=== PATIENT | female | born 1990 | race Caucasian/White ===

== ENCOUNTER 2016-10-27 23:56 | Emergency (ER) | payer BC ==
[~2016-10-27] VITALS: Ht 157.5 cm; Wt 56.0 kg
[2016-10-28 00:05] VITALS: Ht 157.5 cm; Wt 56.0 kg
[2016-10-28] MEDS ORDERED: MELA1TAB5 PO (00:35)
--- NOTE | 2016-10-28 00:36 | EMERGENCY ROOM VISIT NOTE ---
History Report prepared by Zhanna: Matilde Hughes Under the Supervision of: Dr. Sae Dos Santos D.O. First contact with patient: 00:08 Chief Complaint: RECTAL BLEEDING Stated Complaint: GI ISSUE History of Present Illness The patient is a 26 year old female who presents to the Emergency Room with complaints of rectal bleeding beginning 30 minutes prior to arrival. The patient states that she has had this external hemorrhoid since the age of 14. She also complains of weakness and nausea. The patient's LNMP was October 01. Bleeding started following having a bowel movement. She notes that this was very painful. The patient has a history of an appendectomy. Pt denies headache, change in vision, fevers, chest pain, shortness of breath, vomiting, diarrhea, pain with urination, and melena. Source of History: patient Onset: 30 minutes prior to arrival Position: other (rectum) Quality: other (bleeding) Associated Symptoms: + nausea, + weakness, No chest pain, No SOB, No vomiting, No melena, No diarrhea Review of Systems See HPI for pertinent positives & negatives. A total of 10 systems reviewed and were otherwise negative. Past Medical & Surgical Medical Problems: (1) Urinary problem Family History Diabetes mellitus FH: cancer FH: gallbladder disease FH: heart disease Hypertension Kidney disease Social History Smoking Status: Never Smoker Marital Status: single Current/Historical Medications Scheduled Hydrocortisone 2.5% (Rectal) (Anusol-Hc 2.5%), 1 APPLN TOP BID Scheduled PRN Melatonin (Kp Melatonin), 1-2 MG PO HS PRN for Sleep Allergies Coded Allergies: No Known Allergies (Unverified , 10/28/16) Physical Exam Vital Signs Date Time Temp Pulse Resp B/P (MAP) Pulse Ox O2 Delivery O2 Flow Rate FiO2 10/28/16 01:58 36.7 70 18 90/65 100 10/28/16 00:05 36.7 108 18 124/74 100 Room Air Physical Exam GENERAL: sitting up in bed, alert, well appearing, well nourished, no distress, non-toxic EYE EXAM: normal conjunctiva OROPHARYNX: no exudate, no erythema, lips, buccal mucosa, and tongue normal and mucous membranes are moist NECK: supple, no nuchal rigidity, no adenopathy, non-tender LUNGS: Clear to auscultation. Normal chest wall mechanics HEART: no murmurs, S1 normal and S2 normal ABDOMEN: abdomen soft, non-tender, normo-active bowel sounds, no masses, no rebound or guarding. BACK: Back is symmetrical on inspection and there is no deformity, no midline tenderness, no CVA tenderness. SKIN: no rashes and no bruising UPPER EXTREMITIES: upper extremities are grossly normal. LOWER EXTREMITIES: No pitting edema. NEURO EXAM: Normal sensorium, cranial nerves II-XII intact, normal speech, no weakness of arms, no weakness of legs. RECTAL: Heme negative. External hemorrhoid at 3 o'clock with a tear. No obvious bleeding. Medical Decision & Procedures Laboratory Results 10/28/16 00:35 Red Blood Count 3.96, Mean Corpuscular Volume 88.9, Mean Corpuscular Hemoglobin 30.3, Mean Corpuscular Hemoglobin Concent 34.1, Mean Platelet Volume 10.0, Neutrophils (%) (Auto) 65.5, Lymphocytes (%) (Auto) 30.1, Monocytes (%) (Auto) 3.9, Eosinophils (%) (Auto) 0.2, Basophils (%) (Auto) 0.2, Neutrophils # (Auto) 6.23, Lymphocytes # (Auto) 2.87, Monocytes # (Auto) 0.37, Eosinophils # (Auto) 0.02, Basophils # (Auto) 0.02 10/28/16 00:35 Test 10/28/16 00:35 10/28/16 00:45 White Blood Count 9.52 K/uL (4.8-10.8) Red Blood Count 3.96 M/uL (4.2-5.4) Hemoglobin 12.0 g/dL (12.0-16.0) Hematocrit 35.2 % (37-47) Mean Corpuscular Volume 88.9 fL (80-100) Mean Corpuscular Hemoglobin 30.3 pg (25-34) Mean Corpuscular Hemoglobin Concent 34.1 g/dl (32-36) Platelet Count 269 K/uL (130-400) Mean Platelet Volume 10.0 fL (7.4-10.4) Neutrophils (%) (Auto) 65.5 % Lymphocytes (%) (Auto) 30.1 % Monocytes (%) (Auto) 3.9 % Eosinophils (%) (Auto) 0.2 % Basophils (%) (Auto) 0.2 % Neutrophils # (Auto) 6.23 K/uL (1.4-6.5) Lymphocytes # (Auto) 2.87 K/uL (1.2-3.4) Monocytes # (Auto) 0.37 K/uL (0.11-0.59) Eosinophils # (Auto) 0.02 K/uL (0-0.5) Basophils # (Auto) 0.02 K/uL (0-0.2) RDW Standard Deviation 40.0 fL (36.4-46.3) RDW Coefficient of Variation 12.3 % (11.5-14.5) Immature Granulocyte % (Auto) 0.1 % Immature Granulocyte # (Auto) 0.01 K/uL (0.00-0.02) Anion Gap 7.0 mmol/L (3-11) Est Creatinine Clear Calc Drug Dose 84.3 ml/min Estimated GFR () 117.9 Estimated GFR (Non- 101.8 BUN/Creatinine Ratio 9.6 (10-20) Calcium Level 9.1 mg/dl (8.5-10.1) Total Bilirubin 0.2 mg/dl (0.2-1) Direct Bilirubin < 0.1 mg/dl (0-0.2) Aspartate Amino Transf (AST/SGOT) 12 U/L (15-37) Alanine Aminotransferase (ALT/SGPT) 17 U/L (12-78) Alkaline Phosphatase 49 U/L (45-117) Total Protein 6.8 gm/dl (6.4-8.2) Albumin 3.9 gm/dl (3.4-5.0) Lipase 134 U/L (73-393) Urine Color YELLOW Urine Appearance CLEAR (CLEAR) Urine pH 7.5 (4.5-7.5) Urine Specific [place] 1.013 (1.000-1.030) Urine Protein NEG (NEG) Urine Glucose (UA) NEG (NEG) Urine Ketones NEG (NEG) Urine Occult Blood NEG (NEG) Urine Nitrite NEG (NEG) Urine Bilirubin NEG (NEG) Urine Urobilinogen NEG (NEG) Urine Leukocyte Esterase NEG (NEG) Urine WBC (Auto) 1-5 /hpf (0-5) Urine RBC (Auto) 0-4 /hpf (0-4) Urine Hyaline Casts (Auto) 0 /lpf (0-5) Urine Epithelial Cells (Auto) >30 /lpf (0-5) Urine Bacteria (Auto) NEG (NEG) Urine Test NEG (NEG) Laboratory results per my review. ED Course ED COURSE: Vital signs were reviewed and showed tachycardia. The patients medical record was reviewed The above diagnostic studies were performed and reviewed. ED treatments and interventions as stated above. 0010: The patient was evaluated in room A4. A complete history and physical examination was performed. 0051: I checked on the patient and she is doing well. 0120: Upon reevaluation, the patient is feeling better. I discussed the findings and the treatment plan with the patient. She verbalizes agreement and understanding. She was discharged home. Medical Decision Differential diagnoses includes but is not limited to gastritis, peptic ulcer disease, GERD, gallbladder disease, pancreatitis, small bowel obstruction, acute coronary syndrome, pericarditis, ischemic bowel, irritable bowel disease, irritable bowel syndrome, appendicitis, diverticulitis, malignancy, hernia, urinary tract infection, torsion, [/ectopic (if female)], perforation, trauma, infectious. Patient is a 26 her old female who presents the ER for rectal bleeding. She notes she has had a hemorrhoid since she was 14 and she had a bowel movement today and has been having bright red blood and pain since then. She notes it is an external hemorrhoid. Patient has no other complaints with the exception of mild nausea. She does feel lightheaded. Abdominal exam is benign. Rectal exam confirms a small external hemorrhoid with a slight tear in it. No active bleeding currently. Patient does have pain on palpation. Rectal is heme- negative. Labs were remarkable for a CBC, BMP, LFTs, bilirubin and lipase. UA is negative. negative. Patient was updated regards to findings and discharged follow-up PCP. Discussed with Pt concerning signs and symptoms to watch out for. Pt was instructed to follow up with their PCP and discussed with the patient their option to return to the ED at anytime for persistent or worsening symptoms. The appropriate anticipatory guidance and out-patient management, including indications for return to the emergency department, were explained at length to the patient and understood. Blood pressure screening: Patient was found to have normal blood pressure on screening and does not require follow-up. Medication Reconciliation: I attest that I have personally reviewed the patient' s current medication list. Impression Primary Impression: External hemorrhoid Scribe Attestation The scribe's documentation has been prepared under my direction and personally reviewed by me in its entirety. I confirm that the note above accurately reflects all work, treatment, procedures, and medical decision making performed by me. Departure Information Dispostion Home / Self-Care Prescriptions Hydrocortisone 2.5% (Rectal) (ANUSOL-HC 2.5%) 2.5 % Cre 1 APPLN TOP BID for 7 Days, #30 GM 1 Refill Prov: Sae Dos Santos, DO 10/28/16 Referrals No Doctor, Assigned (PCP) Forms HOME CARE DOCUMENTATION FORM, IMPORTANT VISIT INFORMATION, WORK / SCHOOL INSTRUCTIONS Patient Instructions Hemorrhoids, My [facility] [employer] Additional Instructions Please follow up with your primary care doctor with in the next 24 hours. Any worsening of your symptoms, please return to the ED immediately. This includes recurrent bleeding, worsening pain, passing out, chest pain, shortness of breath , or any other concerning signs or symptoms from your standpoint. Please follow up with general surgery or GI for your external hemorrhoid. Please use stool softeners as needed to prevent from straining and worsening your hemorrhoid. These include Colace which you can take [id number] 100 mg twice a day and Senokot's which is also [id number].
[2016-10-28 00:55] LABS: BASO % 0.2 %; BASO ABS # 0.02 K/uL (0-0.2); COMPLETE YES; EOS % 0.2 %; HEMATOCRIT 35.2 % (37-47); IG% 0.1 %; LYMPH % 30.1 %; LYMPH ABS # 2.87 K/uL (1.2-3.4); MEAN CELL VOLUME 88.9 fL (80-100); MEAN CORPUSCULAR HEMOGLOBIN 30.3 pg (25-34); MEAN CORPUSCULAR HGB CONC 34.1 g/dl (32-36); MONO % 3.9 %; NEUT % 65.5 %; PLATELET COUNT 269 K/uL (130-400); RED BLOOD COUNT 3.96 M/uL (4.2-5.4); WHITE BLOOD COUNT 9.52 K/uL (4.8-10.8)
[2016-10-28 01:00] LABS: URINE APPEARANCE CLEAR (CLEAR); URINE BILIRUBIN NEG (NEG); URINE COLOR YELLOW; URINE EPITHELIAL CELL AUTO >30 /lpf (0-5); URINE NITRITE NEG (NEG); URINE PH 7.5 (4.5-7.5); URINE SPECIFIC GRAVITY 1.013 (1.000-1.030); UROBILINOGEN NEG (NEG); ZZUR CULT IF INDIC CLEAN CATCH NO
[2016-10-28 01:10] LABS: MANUAL MICROSCOPIC REQUIRED? NO; REVIEW REQ? NO
[2016-10-28 01:17] LABS: ALT/SGPT 17 U/L (12-78); AST/SGOT 12 U/L (15-37); BLOOD UREA NITROGEN 8 mg/dl (7-18); BUN/CREATININE RATIO 9.6 (10-20); CALCIUM 9.1 mg/dl (8.5-10.1); CARBON DIOXIDE 26 mmol/L (21-32); CHLORIDE 108 mmol/L (98-107); GLUCOSE 99 mg/dl (70-99); SODIUM 141 mmol/L (136-145)
[2016-10-28 01:19] LABS: ALKALINE PHOSPHATASE 49 U/L (45-117)
[2016-10-28] MEDS ORDERED: HYDR2.5C37 TOP (01:46)
[2016-10-28 01:58] VITALS: BP 90/65; PULSE 70; TEMP 36.7; O2SAT 100
== END 2016-10-28 01:59 | disposition home or self-care (01) ==
LOC: C.EDB 23:57 → C.EDA 10-28 01:59
DX: K64.4 Residual hemorrhoidal skin tags (principal); K62.5 Hemorrhage of anus and rectum; R11.0 Nausea; R53.1 Weakness; Z82.49 Family history of ischemic heart disease and other diseases of the circulatory system; Z83.3 Family history of diabetes mellitus; Z83.79 Family history of other diseases of the digestive system; Z84.1 Family history of disorders of kidney and ureter

== ENCOUNTER 2022-06-07 20:29 | Observation (INO) ==
[2022-06-07] MEDS ORDERED: SODIUM CHLORIDE 0.9% 1000ML 1,000 ML IV STA (21:13)
[2022-06-07] MEDS ORDERED: KETOROLAC 30 MG/ML VIAL IV ONE (21:13)
--- NOTE | 2022-06-07 21:15 | Emergency Department Note ---
Impression & Plan Sepsis, Fever, Leukocytosis ED Provider Note HISTORY OF PRESENT ILLNESS: Patient is a 32-year-old female presenting with fever and body aches. Patient reports she has been having a temperature of over 101 for the last 24 hours and generalized body aches. She reports that she has been alternating Tylenol and Motrin without any improvement in symptoms. Her 2 daughters are sick with similar symptoms. She reports a nonproductive cough. Denies any chest pain or significant shortness of breath. Denies any abdominal pain, nausea or vomiting. Denies any dysuria or hematuria. Denies any known tick bites or rashes. ROS: as above PHYSICAL EXAM: Constitutional: Patient appears in no acute distress. Ill appearing HENT: Head: Normocephalic and atraumatic. Eyes: EOMI, PERRL Mouth/Throat: Mucous membranes moist. Neck: Trachea midline. Neck supple. Cardiovascular: Tachycardic with regular rhythm. No murmurs, rubs or gallops. Intact distal pulses. Pulmonary/Chest: No respiratory distress. Breath sounds clear and equal bilaterally. No wheezes or rales. Abdominal: BS +. Abdomen soft, no tenderness, rebound or guarding. Back: No midline spinal tenderness, no paraspinal tenderness, no CVA tenderness. Musculoskeletal: No edema, tenderness or deformity noted. Skin: Warm and dry. No rash, erythema, pallor or cyanosis Psychiatric: Appropriate mood and affect for situation. Neurological: Alert and keenly responsive. CN II-XII grossly intact, moving al l extremities equally and fully. MDM: - Vitals signs showed fever and tachycardia. - History obtained via patient. Patient presents with fever and body aches. Patient reports she has had symptoms for the last 24 hours. Has been taking Tylenol and Motrin without any improvement in symptoms. Reports a nonproductive cough. Denies any chest pain or significant shortness of breath. Her children were sick with a fever and a nonproductive cough over the last week. Denies any dysuria or hematuria. Denies any rashes. Reports generalized body aches. - Chronic conditions affecting care: none - Differential diagnoses include, but are not limited to: Viral syndrome; UTI; pneumonia - Order placed for continuous cardiac monitoring. At this time, monitor showed rate of 112 bpm with normal sinus rhythm, per my interpretation. - External medical records reviewed. - EKG reviewed by myself showed normal sinus rhythm. Tachycardic with HR 119. Normal intervals. QTc 416. - Laboratory workup interpreted by myself showed leukocytosis (WBC 18.35) with neutrophilic shift; hypokalemia (K 3.2); normal creatinine; normal troponin; normal procalcitonin; normal CK - Viral panel normal - CXR negative for acute cardiopulmonary pathology, per my interpretation. - UA ordered. - Blood cultures obtained. IV rocephin given. - Patient given 2L NS, 30 mg IV toradol. - Discussion was had with bilingual social worker about patient's case and need for admission. - Hospitalist, Dr. Wilkerson, consulted for admission. - [facility] ASSESSMENT AND PLAN: Diagnosis: sepsis; fever; tachycardia; leukocytosis Plan: admit Past Med/Surg History Medical History External hemorrhoid Urinary problem Surgical History History of appendectomy (~05/02/08) [place] teeth extracted (~12/08/07) Social History Smoking Status: Never smoker Second Hand Exposure: No; Hx Alcohol Use: No Hx Substance Use: No Preferred Language: [place]an Communication Ability: Effective Leather Dresser Required: No Beliefs That Will Affect Care: None marital status: Current Living Situation: Spouse current occupational status: employed Feels Safe at Home: Yes Assistive Devices: None Allergies Allergies Allergy/AdvReac Type Severity Reaction Status Date / Time No Known Allergies Allergy Verified 06/07/22 21:39 Home Meds Home Medications Medication Instructions Recorded Confirmed venlafaxine 75 mg capsule,extended 75 mg PO DAILY 06/07/22 06/07/22 release 24 hr Results & Data (ED) Vital Signs Vital Signs - 24 hr 06/07/22 20:32 Temperature 39.1 C H Temperature Source Oral Pulse Rate 124 H Respiratory Rate 22 Respiratory Effort / Characteristics Non-Labored Spontaneous Respiratory Depth Normal Respiratory Pattern Regular Blood Pressure 107/72 Blood Pressure Mean 83 Blood Pressure Position Sitting Pulse Oximetry 98 Oxygen Delivery Method Room Air Sepsis Recent Fever Within 48 Hours Yes Sepsis New/Unexplained Change in Mental Status N/A Sepsis Action Taken by Nursing No Action Required Laboratory Data 06/07/22 21:10 06/07/22 21:10 Lab Results 06/07/22 06/07/22 06/07/22 Range/Units 21:00 21:10 21:10 WBC 18.35 H (4.8-10.8) K/ul RBC 4.41 (4.20-5.40) M/uL Hgb 13.5 (12.0-16.0) g/dl Hct 39.8 (37.0-47.0) % MCV 90.2 (80.0-100.0) fL MCH 30.6 (25.0-34.0) pg MCHC 33.9 (32.0-36.0) g/dL RDW Std Deviation 41.5 (36.4-46.3) fL RDW Coeff of Pablo 12.5 (11.5-14.5) % Plt Count 264 (130-400) K/uL MPV 10.0 (9.4-12.4) fL Immature Gran % (Auto) 0.5 % Neut % (Auto) 88.6 % Lymph % (Auto) 7.1 % [place] % (Auto) 3.5 % Eos % (Auto) 0.0 % Baso % (Auto) 0.3 % Neut # (Auto) 16.25 H (1.40-6.50) K/uL Lymph # (Auto) 1.30 (1.2-3.4) K/uL [place] # (Auto) 0.65 H (0.11-0.59) K/uL Eos # (Auto) 0.00 (0-0.50) K/uL Baso # (Auto) 0.05 (0-0.2) K/uL Immature Gran # (Auto) 0.10 (0.01-0.20) K/uL Sodium 135 L (136-145) mmol/L Potassium 3.4 L (3.5-5.1) mmol/L Chloride 103 (98-107) mmol/L Carbon Dioxide 26 (21-32) mmol/L Anion Gap 6 (3-11) BUN 8 (6-23) mg/dl Creatinine 0.79 (0.6-1.2) mg/dl Est Cr Clr Drug Dosing 90.3 ml/min Est GFR ( Amer) 114.8 ml/min Est GFR (Non-Af Amer) 99.1 ml/min BUN/Creatinine Ratio 10.1 (10-20) Glucose 119 H (70-99(Fasting)) mg/dl Calcium 9.0 (8.5-10.1) mg/dl Total Bilirubin 0.4 (0.2-1.0) mg/dl AST 29 (13-39) U/L ALT 25 (7-52) U/L Alkaline Phosphatase 58 (34-104) U/L Total Creatine Kinase 65 (26-192) U/L Troponin I High Sens 4.2 (0-14) pg/ml Total Protein 8.0 (6.0-8.3) gm/dl Albumin 4.3 (3.4-5.0) gm/dl Globulin 3.7 (2.5-4.0) gm/dl Albumin/Globulin Ratio 1.2 (0.9-2) Procalcitonin (0-0.5) ng/ml Adenovirus (PCR) Not Detected (NotDetected) B. pertussis DNA (PCR) Not Detected (NotDetected) B.parapertussis DNA PCR Not Detected (NotDetected) C. pneumoniae DNA (PCR) Not Detected (NotDetected) Coronavirus OC43 (PCR) Not Detected (NotDetected) Coronavirus HKU1 (PCR) Not Detected (NotDetected) Coronavirus 229E (PCR) Not Detected (NotDetected) SARS-CoV-2 (PCR) Not Detected (NotDetected) Coronavirus NL63 (PCR) Not Detected (NotDetected) Human Metapneumovir PCR Not Detected (NotDetected) Influenza Type A (PCR) Not Detected (NotDetected) Influenza Type B (PCR) Not Detected (NotDetected) M. pneumoniae (PCR) Not Detected (NotDetected) Parainfluenza 1 (PCR) Not Detected (NotDetected) Parainfluenza 2 (PCR) Not Detected (NotDetected) Parainfluenza 3 (PCR) Not Detected (NotDetected) Parainfluenza 4 (PCR) Not Detected (NotDetected) RSV (PCR) Not Detected (NotDetected) Entero/Rhino (PCR) Not Detected (NotDetected) 06/07/22 Range/Units 21:10 WBC (4.8-10.8) K/ul RBC (4.20-5.40) M/uL Hgb (12.0-16.0) g/dl Hct (37.0-47.0) % MCV (80.0-100.0) fL MCH (25.0-34.0) pg MCHC (32.0-36.0) g/dL RDW Std Deviation (36.4-46.3) fL RDW Coeff of Pablo (11.5-14.5) % Plt Count (130-400) K/uL MPV (9.4-12.4) fL Immature Gran % (Auto) % Neut % (Auto) % Lymph % (Auto) % [place] % (Auto) % Eos % (Auto) % Baso % (Auto) % Neut # (Auto) (1.40-6.50) K/uL Lymph # (Auto) (1.2-3.4) K/uL [place] # (Auto) (0.11-0.59) K/uL Eos # (Auto) (0-0.50) K/uL Baso # (Auto) (0-0.2) K/uL Immature Gran # (Auto) (0.01-0.20) K/uL Sodium (136-145) mmol/L Potassium (3.5-5.1) mmol/L Chloride (98-107) mmol/L Carbon Dioxide (21-32) mmol/L Anion Gap (3-11) BUN (6-23) mg/dl Creatinine (0.6-1.2) mg/dl Est Cr Clr Drug Dosing ml/min Est GFR ( Amer) ml/min Est GFR (Non-Af Amer) ml/min BUN/Creatinine Ratio (10-20) Glucose (70-99(Fasting)) mg/dl Calcium (8.5-10.1) mg/dl Total Bilirubin (0.2-1.0) mg/dl AST (13-39) U/L ALT (7-52) U/L Alkaline Phosphatase (34-104) U/L Total Creatine Kinase (26-192) U/L Troponin I High Sens (0-14) pg/ml Total Protein (6.0-8.3) gm/dl Albumin (3.4-5.0) gm/dl Globulin (2.5-4.0) gm/dl Albumin/Globulin Ratio (0.9-2) Procalcitonin 0.24 (0-0.5) ng/ml Adenovirus (PCR) (NotDetected) B. pertussis DNA (PCR) (NotDetected) B.parapertussis DNA PCR (NotDetected) C. pneumoniae DNA (PCR) (NotDetected) Coronavirus OC43 (PCR) (NotDetected) Coronavirus HKU1 (PCR) (NotDetected) Coronavirus 229E (PCR) (NotDetected) SARS-CoV-2 (PCR) (NotDetected) Coronavirus NL63 (PCR) (NotDetected) Human Metapneumovir PCR (NotDetected) Influenza Type A (PCR) (NotDetected) Influenza Type B (PCR) (NotDetected) M. pneumoniae (PCR) (NotDetected) Parainfluenza 1 (PCR) (NotDetected) Parainfluenza 2 (PCR) (NotDetected) Parainfluenza 3 (PCR) (NotDetected) Parainfluenza 4 (PCR) (NotDetected) RSV (PCR) (NotDetected) Entero/Rhino (PCR) (NotDetected) Administered Medications Discontinued Medications Sodium Chloride (Nss 1000ml) 1,000 mls @ 125 mls/hr IV .Q8H STA Stop: 06/08/22 05:12 Last Admin: 06/07/22 22:36 Dose: 125 mls/hr Documented By: BS Sodium Chloride (Nss 1000ml) 1,000 mls @ 999 mls/hr IV .Q1H1M ONE Stop: 06/07/22 22:16 Last Admin: 06/07/22 21:47 Dose: 999 mls/hr Documented By: BS Ceftriaxone Sodium (Rocephin) 2,000 mg in 70 mls @ 140 mls/hr IV NOW STA Stop: 06/07/22 21:57 Last Admin: 06/07/22 22:36 Dose: 140 mls/hr Documented By: JUAN ALBERTO Ketorolac Tromethamine (Ketorolac 30 Mg/Ml Vial) 30 mg IV NOW ONE Stop: 06/07/22 21:14 Last Admin: 06/07/22 21:46 Dose: 30 mg Documented By: JUAN ALBERTO Discharge Plan Visit Data Chief Complaint: Fever Stated Complaint: FEVER,BODY ACHES ED Provider: Maritza Vegas Discharge Problem: Sepsis, Fever, Leukocytosis Forms Stand Alone Forms: [facility] Prescriptions Prescriptions: No Action venlafaxine 75 mg capsule,extended release 24hr 75 mg PO DAILY Referrals Referrals: Efrem Verma MD [Primary Care Provider] -
[2022-06-07] MEDS ORDERED: SODIUM CHLORIDE 0.9% 1000ML 1,000 ML IV ONE (21:16)
[2022-06-07 21:26] LABS: Basophils # (auto) 0.05 K/uL (0-0.2); Basophils % (auto) 0.3 %; Hematocrit (blood only) 39.8 % (37.0-47.0); Hemoglobin 13.5 g/dl (12.0-16.0); Immature Granulocytes % (auto) 0.5 %; Lymphocytes % (auto) 7.1 %; Mean Corpuscular Hemoglobin 30.6 pg (25.0-34.0); Mean Corpuscular Hgb Conc 33.9 g/dL (32.0-36.0); Mean Corpuscular Volume 90.2 fL (80.0-100.0); Monocytes # (auto) 0.65 K/uL (0.11-0.59); Monocytes % (auto) 3.5 %; Neutrophils # (auto) 16.25 K/uL (1.40-6.50); Neutrophils % (auto) 88.6 %; Platelet Count 264 K/uL (130-400); RDW Coefficient of Variation 12.5 % (11.5-14.5); RDW Standard Deviation 41.5 fL (36.4-46.3); Red Blood Count 4.41 M/uL (4.20-5.40); White Blood Count 18.35 K/ul (4.8-10.8)
[2022-06-07] MEDS ORDERED: cefTRIAXone SODIUM 2,000 MG/70 ML BAG IV STA (21:28)
[2022-06-07 21:42] LABS: Albumin Globulin Ratio 1.2 (0.9-2); Albumin Level 4.3 gm/dl (3.4-5.0); BUN Creatinine Ratio 10.1 (10-20); Bilirubin,Total 0.4 mg/dl (0.2-1.0); Creatinine Clr Calc Pharmacy 90.3 ml/min; Est GFR (African American) 114.8 ml/min; Est GFR (Non-African American) 99.1 ml/min; Globulin 3.7 gm/dl (2.5-4.0); Potassium 3.4 mmol/L (3.5-5.1)
[2022-06-07 21:51] LABS: Troponin I High Sensitivity 4.2 pg/ml (0-14)
[2022-06-07 22:22] LABS: Adenovirus PCR Not Detected (NotDetected); Bordetella parapertussis PCR Not Detected (NotDetected); Bordetella pertussis PCR Not Detected (NotDetected); Chlamydia pneumoniae PCR Not Detected (NotDetected); Coronavirus 229E PCR Not Detected (NotDetected); Coronavirus CoV-2 (COVID19)PCR Not Detected (NotDetected); Coronavirus HKU1 PCR Not Detected (NotDetected); Coronavirus NL63 PCR Not Detected (NotDetected); Coronavirus OC43PCR Not Detected (NotDetected); Human Metapneumovirus PCR Not Detected (NotDetected); Influenza A PCR Not Detected (NotDetected); Influenza B PCR Not Detected (NotDetected); Mycoplasma pneumoniae PCR Not Detected (NotDetected); Parainfluenza Virus 1 PCR Not Detected (NotDetected); Parainfluenza Virus 2 PCR Not Detected (NotDetected); Parainfluenza Virus 3 PCR Not Detected (NotDetected); Parainfluenza Virus 4 PCR Not Detected (NotDetected); Respiratory Syncytial VirusPCR Not Detected (NotDetected); Rhinovirus/Enterovirus PCR Not Detected (NotDetected)
[2022-06-07] MEDS ORDERED: POTASSIUM CHLORIDE PWD 20 MEQ PACK PO STA (22:31)
[2022-06-07] MEDS ORDERED: LACTATED RINGER'S 1,000 ML IV STA (22:37)
[2022-06-07 22:49] LABS: Magnesium 1.9 mg/dl (1.7-2.4)
--- NOTE | 2022-06-07 22:53 | History & Physical Report ---
Date of Service June 07, 2022 Assessment & Plan (1) Sepsis: Plan: Possible viral illness No obvious bacterial source of infection for now Hypokalemia secondary to decreased p.o. intake Hyperglycemia rule out DM mood disorder, stable Medical telemetry CS Supportive management for presumptive viral illness Hold off on antibiotics until definite bacterial source found. Replace potassium Check hemoglobin A1c DVT prophylaxis. Lovenox subcu Full code Text document was generated using [employer] voice recognition software. It may contain grammatical or spelling errors. Kindly contact undersigned for clarification of any documentation item in quest ion. History of Present Illness Chief Complaint: Fever, body aches Primary Care Provider: Efrem Verma MD History obtained from patient and records. Medical history significant for mood disorder, exercise-induced asthma. 1 day history of fever and body aches. Dry cough and sinus headache symptoms. Sick contacts at home. Patient denies chest pain, SOB, abdominal pain, dysuria symptoms. Patient consulted ER. IV ceftriaxone administered for possible sepsis. 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 Allergies Allergy/AdvReac Type Severity Reaction Status Date / Time No Known Allergies Allergy Verified 06/07/22 21:39 Home Medications Medication Instructions Recorded Confirmed Type venlafaxine 75 mg capsule,extended 75 mg PO DAILY 06/07/22 06/07/22 History release 24 hr Past Med/Surg History Medical History External hemorrhoid Urinary problem Surgical History History of appendectomy (~05/02/08) [place] teeth extracted (~12/08/07) Social History Smoking Status: Never smoker Second Hand Exposure: No; Hx Alcohol Use: Yes Alcohol type: beer Hx Substance Use: No Preferred Language: Russian Communication Ability: Effective Deliverer Outside Required: No Beliefs That Will Affect Care: None marital status: Current Living Situation: Family current occupational status: employed Feels Safe at Home: Yes Assistive Devices: None Review of Systems Review of Systems: As per HPI, all other systems reviewed and negative Physical Exam Physical Exam: GENERAL: Slightly uncomfortable, ill-appearing, pleasant, no respiratory distress SKIN: Normal color, warm HEENT: [place] palpebral conjunctivae, no ptosis, dry buccal mucosa NECK : Supple, no tenderness CHEST : CTA, no tenderness HEART : Tachycardic, no obvious murmurs ABDOMEN: no distention, nontender EXTREMITIES : No LE swelling/tenderness, no other conspicuous deformities noted NEUROLOGIC : Coherent, no facial asymmetry, no other gross focality Results & Data Results & Data ([facility]) Vital Signs (Past 12 Hours) Vital Signs Temp Pulse Resp BP Pulse Ox O2 Del Method 06/07/22 22:00 114 H 24 112/70 96 06/07/22 21:46 114 H 20 112/69 99 06/07/22 20:32 39.1 C H 124 H 22 107/72 98 Room Air Laboratory Results Laboratory Results WBC 18.35 K/ul (4.8-10.8) H 06/07/22 21:10 RBC 4.41 M/uL (4.20-5.40) 06/07/22 21:10 Hgb 13.5 g/dl (12.0-16.0) 06/07/22 21:10 Hct 39.8 % (37.0-47.0) 06/07/22 21:10 MCV 90.2 fL (80.0-100.0) 06/07/22 21:10 MCH 30.6 pg (25.0-34.0) 06/07/22 21:10 MCHC 33.9 g/dL (32.0-36.0) 06/07/22 21:10 RDW Std Deviation 41.5 fL (36.4-46.3) 06/07/22 21:10 RDW Coeff of Pablo 12.5 % (11.5-14.5) 06/07/22 21:10 Plt Count 264 K/uL (130-400) 06/07/22 21:10 MPV 10.0 fL (9.4-12.4) 06/07/22 21:10 Immature Gran % (Auto) 0.5 % 06/07/22 21:10 Neut % (Auto) 88.6 % 06/07/22 21:10 Lymph % (Auto) 7.1 % 06/07/22 21:10 Bell % (Auto) 3.5 % 06/07/22 21:10 Eos % (Auto) 0.0 % 06/07/22 21:10 Baso % (Auto) 0.3 % 06/07/22 21:10 Neut # (Auto) 16.25 K/uL (1.40-6.50) H 06/07/22 21:10 Lymph # (Auto) 1.30 K/uL (1.2-3.4) 06/07/22 21:10 Bell # (Auto) 0.65 K/uL (0.11-0.59) H 06/07/22 21:10 Eos # (Auto) 0.00 K/uL (0-0.50) 06/07/22 21:10 Baso # (Auto) 0.05 K/uL (0-0.2) 06/07/22 21:10 Immature Gran # (Auto) 0.10 K/uL (0.01-0.20) 06/07/22 21:10 Sodium 135 mmol/L (136-145) L 06/07/22 21:10 Potassium 3.4 mmol/L (3.5-5.1) L 06/07/22 21:10 Chloride 103 mmol/L (98-107) 06/07/22 21:10 Carbon Dioxide 26 mmol/L (21-32) 06/07/22 21:10 Anion Gap 6 (3-11) 06/07/22 21:10 BUN 8 mg/dl (6-23) 06/07/22 21:10 Creatinine 0.79 mg/dl (0.6-1.2) 06/07/22 21:10 Est Cr Clr Drug Dosing 90.3 ml/min 06/07/22 21:10 Est GFR ( Amer) 114.8 ml/min 06/07/22 21:10 Est GFR (Non-Af Amer) 99.1 ml/min 06/07/22 21:10 BUN/Creatinine Ratio 10.1 (10-20) 06/07/22 21:10 Glucose 119 mg/dl (70-99(Fasting)) H 06/07/22 21:10 Calcium 9.0 mg/dl (8.5-10.1) 06/07/22 21:10 Magnesium 1.9 mg/dl (1.7-2.4) 06/07/22 21:10 Total Bilirubin 0.4 mg/dl (0.2-1.0) 06/07/22 21:10 AST 29 U/L (13-39) 06/07/22 21:10 ALT 25 U/L (7-52) 06/07/22 21:10 Alkaline Phosphatase 58 U/L (34-104) 06/07/22 21:10 Total Creatine Kinase 65 U/L (26-192) 06/07/22 21:10 Troponin I High Sens 4.2 pg/ml (0-14) 06/07/22 21:10 Total Protein 8.0 gm/dl (6.0-8.3) 06/07/22 21:10 Albumin 4.3 gm/dl (3.4-5.0) 06/07/22 21:10 Globulin 3.7 gm/dl (2.5-4.0) 06/07/22 21:10 Albumin/Globulin Ratio 1.2 (0.9-2) 06/07/22 21:10 Procalcitonin 0.24 ng/ml (0-0.5) 06/07/22 21:10 Adenovirus (PCR) Not Detected (NotDetected) 06/07/22 21:00 B. pertussis DNA (PCR) Not Detected (NotDetected) 06/07/22 21:00 B.parapertussis DNA PCR Not Detected (NotDetected) 06/07/22 21:00 C. pneumoniae DNA (PCR) Not Detected (NotDetected) 06/07/22 21:00 Coronavirus OC43 (PCR) Not Detected (NotDetected) 06/07/22 21:00 Coronavirus HKU1 (PCR) Not Detected (NotDetected) 06/07/22 21:00 Coronavirus 229E (PCR) Not Detected (NotDetected) 06/07/22 21:00 SARS-CoV-2 (PCR) Not Detected (NotDetected) 06/07/22 21:00 Coronavirus NL63 (PCR) Not Detected (NotDetected) 06/07/22 21:00 Human Metapneumovir PCR Not Detected (NotDetected) 06/07/22 21:00 Influenza Type A (PCR) Not Detected (NotDetected) 06/07/22 21:00 Influenza Type B (PCR) Not Detected (NotDetected) 06/07/22 21:00 M. pneumoniae (PCR) Not Detected (NotDetected) 06/07/22 21:00 Parainfluenza 1 (PCR) Not Detected (NotDetected) 06/07/22 21:00 Parainfluenza 2 (PCR) Not Detected (NotDetected) 06/07/22 21:00 Parainfluenza 3 (PCR) Not Detected (NotDetected) 06/07/22 21:00 Parainfluenza 4 (PCR) Not Detected (NotDetected) 06/07/22 21:00 RSV (PCR) Not Detected (NotDetected) 06/07/22 21:00 Entero/Rhino (PCR) Not Detected (NotDetected) 06/07/22 21:00 Diagnostic Findings Chest x-ray as per my interpretation no infiltrate EKG as per my interpretation : Rate 120, sinus tachycardia, normal axis, incomplete RBBB, T wave flattening inferior leads
[2022-06-07 22:56] LABS: Appearance Urine Clear (Clear); Bacteria Urine Automated 1+ (Negative); Bilirubin Urine Negative (Negative); Blood Urine Negative (Negative); Cast Urine Automated 0 /lpf (0-5); Color Urine Yellow; Epithelial Cell Urine Auto 20-30 /lpf (0-5); Glucose Urine UA Negative (Negative); Ketones Urine Negative (Negative); Leukocyte Esterase Urine Trace (Negative); Nitrite Urine Negative (Negative); Protein Urine Negative (Negative); Specific Gravity Urine 1.008 (1.000-1.030); Urobilinogen Urine Negative (Negative); pH Urine 6.5 (4.5-7.5)
[2022-06-07] MEDS: MAGNESIUM SULFATE / D5W 1 GM/100 ML BAG IV SCH (23:25)
[2022-06-08] MEDS ORDERED: PROMETHAZINE HCL 12.5 MG in SODIUM CHLORIDE 0.9% 50 ML IV PRN (00:16)
[2022-06-08] MEDS: guaiFENesin 600 MG TABCR PO SCH ×3 (00:47→21:18)
[2022-06-08] MEDS ORDERED: POTASSIUM CHLORIDE CRTAB 20 MEQ TABCR PO ONE (01:00)
[2022-06-08] MEDS: MAGNESIUM SULFATE / D5W 1 GM/100 ML BAG IV SCH (01:28)
[2022-06-08] MEDS ORDERED: NSS + 20MEQ KCL 20 MEQ/1,000 ML BAG IV ONE (01:30)
[2022-06-08] MEDS: ACETAMINOPHEN 325 MG TAB PO PRN ×2 (02:23→23:17)
[2022-06-08] MEDS ORDERED: KETOROLAC TROMETHAMINE 15 MG/ML VIAL IV ONE (03:27)
--- NOTE | 2022-06-08 07:06 | XRay Report ---
XR chest 1V portable HISTORY: Fever COMPARISON: None. FINDINGS: The lungs are clear. Cardiac silhouette is normal in size. No pleural effusions. No pneumot horax. IMPRESSION: No acute process. ACT 112: Negative or not required by law. Electronically signed by: Maury Wick M.D. 06/08/2022 7:04 AM
[2022-06-08 08:09] LABS: Basophils # (auto) 0.04 K/uL (0-0.2); Basophils % (auto) 0.2 %; Hematocrit (blood only) 34.3 % (37.0-47.0); Hemoglobin 11.6 g/dl (12.0-16.0); Immature Granulocytes # (auto) 0.27 K/uL (0.01-0.20); Immature Granulocytes % (auto) 1.3 %; Lymphocytes % (auto) 6.6 %; Mean Corpuscular Hemoglobin 30.4 pg (25.0-34.0); Mean Corpuscular Hgb Conc 33.8 g/dL (32.0-36.0); Mean Corpuscular Volume 89.8 fL (80.0-100.0); Monocytes # (auto) 1.06 K/uL (0.11-0.59); Neutrophils # (auto) 18.53 K/uL (1.40-6.50); Neutrophils % (auto) 86.9 %; Platelet Count 236 K/uL (130-400); RDW Coefficient of Variation 12.5 % (11.5-14.5); RDW Standard Deviation 41.2 fL (36.4-46.3); Red Blood Count 3.82 M/uL (4.20-5.40)
[2022-06-08] MEDS ORDERED: FLUARIX QUADRIVALENT 0.5 ML SYR IM ONE (09:00)
[2022-06-08] MEDS ORDERED: VENLAFAXINE HCL XR 75 MG CAPXR PO SCH (09:00)
[2022-06-08 09:54] LABS: Estimated Average Glucose 105 mg/dl; Hemoglobin A1C 5.3 % (4.5-5.6)
[2022-06-08] MEDS: KETOROLAC TROMETHAMINE 10 MG TABLET PO PRN ×2 (11:21→19:56)
[2022-06-08] MEDS ORDERED: PIPERACILLIN/TAZOBACTAM 3.375 GM (over 30 mins) IV ONE (12:15)
[2022-06-08] MEDS: ACETAMINOPHEN 1,000 MG/100 ML VIAL IV PRN (12:19)
[2022-06-08] MEDS: NSS + 20MEQ KCL 20 MEQ/1,000 ML BAG IV SCH ×2 (12:36→22:18)
[2022-06-08 13:49] LABS: Influenza A virus by PCR Negative (Neg); Influenza B virus by PCR Negative (Neg); RSV by PCR Negative (Neg); SARS CoV2 RNA(COVID-19) Ceph NEGATIVE (Negative)
[2022-06-08] MEDS ORDERED: DOXYCYCLINE HYCLATE 100 MG CAP PO SCH (16:05)
--- NOTE | 2022-06-08 16:12 | Hospitalist Progress Note ---
Date of Service June 08, 2022 Assessment & Plan (1) Sepsis: Plan: Sepsis Possible viral illness DD: Acute bronchitis, R/O COVID, Lyme --CXR:The lungs are clear. Cardiac silhouette is normal in size. No pleural effusions. No pneumothorax. --Biofire: Negative --Normal procalcitonin, lactate levels --Blood Cultures: Pending --Urine culture no growth to date Continue IV fluids Empirically on Zosyn, doxycycline Check Lyme screen Will Consider Lumbar puncture if no improvement Chronic Hypotension BP usually low per patient Monitor BP Hypokalemia Replace as needed Monitor Hyperglycemia HbA1C: 5.3 Mood disorder stable Continue venlafaxine DVT Px: Lovenox SQ Code Status Full code Admission and Anticipated Discharge Date Admission Date: June 07, 2022 Subjective Patient is seen and examined at bedside States having cough, headache, generalized body/joint ache, sinus congestion and sore throat Denies any chest pain, dyspnea, nausea, vomiting, diarrhea No other complaints Review of Systems Review of Systems: All systems reviewed & are unremarkable except as noted in Subjective Physical Exam Physical Exam: Physical Exam: Vitals signs as noted above General Appearance:Moderately built and nourished, no apparent distress Head: normocephalic, Atraumatic Eyes: normal inspection, EOMI Neck: supple, Trachea midline Respiratory/Chest: Normal breath sounds, CTA, No accessory muscle use Cardiovascular: S1, S2, No murmur Abdomen/GI:Soft, Non tender, Bowel sounds present Extremities/Musculoskeletal:normal inspection, no edema Neurologic/Psych:AAOX3, grossly no focal neurological deficits Skin: normal color, warm Results & Data Results & [facility] ([facility]) Vital Signs (Past 12 Hours) Vital Signs Temp Pulse Pulse Resp BP Pulse Ox O2 Del Method 06/08/22 15:30 88 06/08/22 13:13 37.1 C 06/08/22 09:00 Nasal Cannula 06/08/22 11:12 38.4 C H 113 H 20 90/53 L 100 Nasal Cannula 06/08/22 07:44 99 H 06/08/22 07:36 37.1 C 98 H 20 97/65 L 96 Room Air 06/08/22 04:54 37.8 C H 06/08/22 04:22 36.1 C L 107 H 20 120/77 97 Room Air O2 Flow Rate 06/08/22 15:30 06/08/22 13:13 06/08/22 09:00 2 06/08/22 11:12 2 06/08/22 07:44 06/08/22 07:36 06/08/22 04:54 06/08/22 04:22 Laboratory Results Short CBC 06/07/22 06/08/22 Range/Units 21:10 07:32 WBC 18.35 H 21.30 H (4.8-10.8) K/ul Hgb 13.5 11.6 L (12.0-16.0) g/dl Hct 39.8 34.3 L (37.0-47.0) % Plt Count 264 236 (130-400) K/uL BMP 06/07/22 21:10 Sodium 135 L Potassium 3.4 L Chloride 103 Carbon Dioxide 26 BUN 8 Creatinine 0.79 Glucose 119 H Calcium 9.0 Cardiac Enzymes 06/07/22 Range/Units 21:10 Total Creatine Kinase 65 (26-192) U/L Liver Function 06/07/22 Range/Units 21:10 Total Bilirubin 0.4 (0.2-1.0) mg/dl AST 29 (13-39) U/L ALT 25 (7-52) U/L Alkaline Phosphatase 58 (34-104) U/L Albumin 4.3 (3.4-5.0) gm/dl Urine 06/07/22 Range/Units 22:37 Urine Color Yellow Urine Appearance Clear (Clear) Urine pH 6.5 (4.5-7.5) Ur Specific [place] 1.008 (1.000-1.030) Urine Protein Negative (Negative) Urine Glucose (UA) Negative (Negative)
[2022-06-08] MEDS: PIPERACILLIN/TAZOBACTAM 3.375 GM in DEXTROSE 5% 100 ML IV SCH (16:30)
[2022-06-08] MEDS: DOXYCYCLINE HYCLATE 100 MG in DEXTROSE 5% 100 ML IV SCH (17:05)
[2022-06-08] MEDS: VENLAFAXINE HCL XR 75 MG CAPXR PO SCH (21:18)
[2022-06-09] MEDS: PIPERACILLIN/TAZOBACTAM 3.375 GM in DEXTROSE 5% 100 ML IV SCH ×4 (00:10→23:57)
[2022-06-09] MEDS ORDERED: KETOROLAC TROMETHAMINE 15 MG/ML VIAL IV ONE (00:24)
[2022-06-09 01:12] LABS: Lyme Ab IgG w/WB Rflx Negative (Negative); Lyme Ab IgM w/WB Rflx Negative (Negative)
[2022-06-09] MEDS: DOXYCYCLINE HYCLATE 100 MG in DEXTROSE 5% 100 ML IV SCH ×2 (04:40→15:59)
--- NOTE | 2022-06-09 05:50 | Electrocardiogram Report ---
Test Reason : Blood Pressure : / mmHG Vent. Rate : 119 BPM Atrial Rate : 119 BPM P-R Int : 124 ms QRS Dur : 092 ms QT Int : 296 ms P-R-T Axes : 043 053 057 degrees QTc Int : 416 ms Sinus tachycardia Incomplete right bundle branch block Borderline ECG When compared with ECG of 18-OCT-2021 14:31, Vent. rate has increased BY 51 BPM Incomplete right bundle branch block is now Present Confirmed by Mitchel Hsu ([id number]) on 06/09/2022 5:50:32 AM Referred By: REFERRED SELF Confirmed By:Mitchel Hsu
--- NOTE | 2022-06-09 06:42 | CT Scan Report ---
CT head/brain wo con CLINICAL HISTORY: 32 years-old Female with bush. Acute headache TECHNIQUE: Multiple axial CT images of the head were obtained without contrast. A dose lowering tech nique was utilized adhering to the principles of ALARA. CT DOSE: 537.48 mGy.cm COMPARISON: None. FINDINGS: No acute intracranial hemorrhage, midline shift, intracranial mass, hydrocephalus, territorial ischem ia or abnormal extra-axial collection. Low-lying cerebellar tonsils. The calvarium is intact. The paranasal sinuses, mastoid air cells, and middle ear cavities are clear . IMPRESSION: No acute intracranial abnormality. ACT 112: Negative or not required by law. The above report was generated using voice recognition software. It may contain grammatical, syntax o r spelling errors. Electronically signed by: Joshua Braswell M.D. 06/09/2022 6:41 AM
[2022-06-09] MEDS: guaiFENesin 600 MG TABCR PO SCH ×2 (09:02→20:35)
[2022-06-09] MEDS ORDERED: SODIUM CHLORIDE 0.65% NA SOLN 45 ML (OCEAN) PRN (09:55)
[2022-06-09 10:01] LABS: Hematocrit (blood only) 31.9 % (37.0-47.0); Hemoglobin 10.7 g/dl (12.0-16.0); Mean Corpuscular Hemoglobin 30.2 pg (25.0-34.0); Mean Corpuscular Hgb Conc 33.5 g/dL (32.0-36.0); Mean Corpuscular Volume 90.1 fL (80.0-100.0); Mean Platelet Volume 10.1 fL (9.4-12.4); Platelet Count 199 K/uL (130-400); RDW Coefficient of Variation 12.7 % (11.5-14.5); RDW Standard Deviation 42.3 fL (36.4-46.3); Red Blood Count 3.54 M/uL (4.20-5.40); White Blood Count 15.27 K/ul (4.8-10.8)
[2022-06-09 10:30] LABS: BUN Creatinine Ratio 9.8 (10-20); Calcium 8.1 mg/dl (8.5-10.1)
[2022-06-09] MEDS: FLUTICASONE PROPIONATE NA SPR 16 GM BTL SCH (10:55)
[2022-06-09] MEDS: ACETAMINOPHEN 1,000 MG/100 ML VIAL IV PRN (14:32)
[2022-06-09] MEDS: ACETAMINOPHEN 325 MG TAB PO PRN ×2 (14:32→22:56)
--- NOTE | 2022-06-09 14:47 | Hospitalist Progress Note ---
Date of Service June 09, 2022 Assessment & Plan (1) Sepsis: Plan: Sepsis Likely Streptococcal Bronchitis DD: Less likely viral etiology --CXR:The lungs are clear. Cardiac silhouette is normal in size. No pleural effusions. No pneumothorax. --Biofire: Negative --Normal procalcitonin, lactate levels --Blood Cultures:No growth to date --Urine culture: Lactobacillus --Negative Lyme Screen Received IV fluids Continue Zosyn, doxycycline Transition to p.o. antibiotics as able Leukocytosis trending down Chronic Hypotension BP usually low per patient Monitor BP Hypokalemia Replace as needed Monitor Hyperglycemia HbA1C: 5.3 Mood disorder stable Continue venlafaxine DVT Px: Lovenox SQ Code Status Full code Admission and Anticipated Discharge Date Admission Date: June 07, 2022 Subjective Patient is seen and examined at bedside States feeling better today Cough, headache, generalized body/joint ache, sinus congestion improving Afebrile today Sore throat much improved Denies any chest pain, dyspnea, nausea, vomiting, diarrhea Review of Systems Review of Systems: All systems reviewed & are unremarkable except as noted in Subjective Physical Exam Physical Exam: Physical Exam: Vitals signs as noted above General Appearance:Moderately built and nourished, no apparent distress Head: normocephalic, Atraumatic Eyes: normal inspection, EOMI Neck: supple, Trachea midline, No neck stiffness Respiratory/Chest: Normal breath sounds, CTA, No accessory muscle use Cardiovascular: S1, S2, No murmur Abdomen/GI:Soft, Non tender, Bowel sounds present Extremities/Musculoskeletal:normal inspection, no edema Neurologic/Psych:AAOX3, grossly no focal neurological deficits Skin: normal color, warm Results & Data Results & Data ([facility]) Vital Signs (Past 12 Hours) Vital Signs Temp Pulse Pulse Resp BP Pulse Ox O2 Del Method 06/09/22 08:15 Room Air 06/09/22 11:06 37.0 C 106 H 18 107/71 96 Room Air 06/09/22 07:30 36.9 C 77 20 110/74 92 Room Air 06/09/22 07:05 75 06/09/22 04:17 36.7 C 94 H 20 109/74 96 Room Air Laboratory Results Short CBC 06/09/22 Range/Units 09:34 WBC 15.27 H (4.8-10.8) K/ul Hgb 10.7 L (12.0-16.0) g/dl Hct 31.9 L (37.0-47.0) % Plt Count 199 (130-400) K/uL [facility] 06/09/22 09:34 Sodium 137 Potassium 4.0 Chloride 112 H Carbon Dioxide 23 BUN 6 Creatinine 0.61 Glucose 135 H Calcium 8.1 L
[2022-06-09] MEDS: VENLAFAXINE HCL XR 75 MG CAPXR PO SCH (20:35)
[2022-06-10] MEDS: DOXYCYCLINE HYCLATE 100 MG in DEXTROSE 5% 100 ML IV SCH (04:46)
[2022-06-10 08:12] LABS: Hematocrit (blood only) 33.3 % (37.0-47.0); Hemoglobin 11.3 g/dl (12.0-16.0); Mean Corpuscular Hemoglobin 30.1 pg (25.0-34.0); Mean Corpuscular Hgb Conc 33.9 g/dL (32.0-36.0); Mean Corpuscular Volume 88.6 fL (80.0-100.0); Mean Platelet Volume 10.3 fL (9.4-12.4); Platelet Count 255 K/uL (130-400); RDW Coefficient of Variation 12.4 % (11.5-14.5); RDW Standard Deviation 40.1 fL (36.4-46.3); Red Blood Count 3.76 M/uL (4.20-5.40); White Blood Count 14.45 K/ul (4.8-10.8)
[2022-06-10 08:19] LABS: BUN Creatinine Ratio 6.9 (10-20); Calcium 8.7 mg/dl (8.5-10.1); Creatinine Clr Calc Pharmacy 122.1 ml/min; Est GFR (African American) 141.4 ml/min; Magnesium 1.9 mg/dl (1.7-2.4); Potassium 3.8 mmol/L (3.5-5.1)
[2022-06-10] MEDS: PIPERACILLIN/TAZOBACTAM 3.375 GM in DEXTROSE 5% 100 ML IV SCH ×2 (08:22→16:18)
[2022-06-10] MEDS: guaiFENesin 600 MG TABCR PO SCH ×2 (08:24→21:11)
[2022-06-10] MEDS: FLUTICASONE PROPIONATE NA SPR 16 GM BTL SCH (08:24)
--- NOTE | 2022-06-10 14:48 | Hospitalist Progress Note ---
Date of Service June 10, 2022 Assessment & Plan (1) Sepsis: Plan: Sepsis Likely Streptococcal Bronchitis DD: Less likely viral etiology +Family contact with Strep infection --CXR:The lungs are clear. Cardiac silhouette is normal in size. No pleural effusions. No pneumothorax. --Biofire: Negative --Normal procalcitonin, lactate levels --Blood Cultures:No growth to date --Urine culture: Lactobacillus --Negative Lyme Screen Received IV fluids Continue Zosyn, doxycycline Leukocytosis trending down Clinically improving Will likely discharge tomorrow if continues to improve Chronic Hypotension BP usually low per patient Monitor BP Hypokalemia Replace as needed Monitor Hyperglycemia HbA1C: 5.3 Mood disorder stable Continue venlafaxine DVT Px: Lovenox SQ Code Status Full code Admission and Anticipated Discharge Date Admission Date: June 07, 2022 Subjective Patient is seen and examined at bedside Febrile overnight Afebrile this morning No new complaints Headache, joint and body ache much improved Minimal Cough Denies any chest pain, dyspnea, nausea, vomiting, abd pain,diarrhea Review of Systems Review of Systems: All systems reviewed & are unremarkable except as noted in Subjective Physical Exam Physical Exam: Physical Exam: Vitals signs as noted above General Appearance:Moderately built and nourished, no apparent distress Head: normocephalic, Atraumatic Eyes: normal inspection, EOMI Neck: supple, Trachea midline, No neck stiffness Respiratory/Chest: Normal breath sounds, CTA, No accessory muscle use Cardiovascular: S1, S2, No murmur Abdomen/GI:Soft, Non tender, Bowel sounds present Extremities/Musculoskeletal:normal inspection, no edema Neurologic/Psych:AAOX3, grossly no focal neurological deficits Skin: normal color, warm Results & Data Results & Data ([facility]) Vital Signs (Past 12 Hours) Vital Signs Temp Pulse Pulse Resp BP Pulse Ox O2 Del Method 06/10/22 10:52 36.8 C 95 H 16 109/70 97 Room Air 06/10/22 07:31 36.8 C 68 16 107/71 96 Room Air 06/10/22 07:31 73 06/10/22 04:00 36.9 C 20 99/66 L 92 Room Air Laboratory Results Short CBC 06/10/22 Range/Units 07:23 WBC 14.45 H (4.8-10.8) K/ul Hgb 11.3 L (12.0-16.0) g/dl Hct 33.3 L (37.0-47.0) % Plt Count 255 (130-400) K/uL BMP 06/10/22 07:23 Sodium 139 Potassium 3.8 Chloride 109 H Carbon Dioxide 24 BUN 4 L Creatinine 0.58 L Glucose 92 Calcium 8.7
[2022-06-10] MEDS: VENLAFAXINE HCL XR 75 MG CAPXR PO SCH (21:11)
[2022-06-10] MEDS: DOXYCYCLINE HYCLATE 100 MG CAP PO SCH (21:11)
[2022-06-11 06:58] LABS: Hematocrit (blood only) 35.6 % (37.0-47.0); Hemoglobin 12.2 g/dl (12.0-16.0); Mean Corpuscular Hemoglobin 30.4 pg (25.0-34.0); Mean Corpuscular Hgb Conc 34.3 g/dL (32.0-36.0); Mean Corpuscular Volume 88.8 fL (80.0-100.0); Mean Platelet Volume 9.7 fL (9.4-12.4); Platelet Count 294 K/uL (130-400); RDW Coefficient of Variation 12.4 % (11.5-14.5); RDW Standard Deviation 40.9 fL (36.4-46.3); Red Blood Count 4.01 M/uL (4.20-5.40); White Blood Count 9.34 K/ul (4.8-10.8)
[2022-06-11 07:39] LABS: BUN Creatinine Ratio 8.5 (10-20); Calcium 8.8 mg/dl (8.5-10.1); Est GFR (African American) 130.6 ml/min; Est GFR (Non-African American) 112.7 ml/min; Potassium 3.7 mmol/L (3.5-5.1)
[2022-06-11] MEDS: DOXYCYCLINE HYCLATE 100 MG CAP PO SCH (08:23)
[2022-06-11] MEDS: FLUTICASONE PROPIONATE NA SPR 16 GM BTL SCH (08:25)
[2022-06-11] MEDS: guaiFENesin 600 MG TABCR PO SCH (08:26)
[2022-06-11] MEDS: PIPERACILLIN/TAZOBACTAM 3.375 GM in DEXTROSE 5% 100 ML IV SCH ×2 (09:26)
--- NOTE | 2022-06-11 12:43 | Hospitalist Progress Note ---
Date of Service June 11, 2022 Assessment & Plan (1) Sepsis: Plan: Sepsis Likely Streptococcal Bronchitis DD: Less likely viral etiology +Family contact with Strep infection --CXR:The lungs are clear. Cardiac silhouette is normal in size. No pleural effusions. No pneumothorax. --Biofire: Negative --Normal procalcitonin, lactate levels --Blood Cultures:No growth to date --Urine culture: Lactobacillus --Negative Lyme Screen Received IV fluids Continue Zosyn, doxycycline>> transition to p.o. antibiotics upon discharge Leukocytosis normalized Plan to discharge home today Chronic Hypotension BP usually low per patient Monitor BP Hypokalemia Replace as needed Monitor Hyperglycemia HbA1C: 5.3 Mood disorder stable Continue venlafaxine DVT Px: Lovenox SQ Code Status Full code Admission and Anticipated Discharge Date Admission Date: June 07, 2022 Subjective Patient is seen and examined at bedside States feeling well today No new complaints Fever resolved Minimal Cough Denies any chest pain, dyspnea, nausea, vomiting, abd pain,diarrhea No other complaints Review of Systems Review of Systems: All systems reviewed & are unremarkable except as noted in Subjective Physical Exam Physical Exam: Physical Exam: Vitals signs as noted above General Appearance:Moderately built and nourished, no apparent distress Head: normocephalic, Atraumatic Eyes: normal inspection, EOMI Neck: supple, Trachea midline, No neck stiffness Respiratory/Chest: Normal breath sounds, CTA, No accessory muscle use Cardiovascular: S1, S2, No murmur Abdomen/GI:Soft, Non tender, Bowel sounds present Extremities/Musculoskeletal:normal inspection, no edema Neurologic/Psych:AAOX3, grossly no focal neurological deficits Skin: normal color, warm Results & Data Results & Data ([facility]) Vital Signs (Past 12 Hours) Vital Signs Temp Pulse Pulse Resp BP Pulse Ox O2 Del Method 06/11/22 08:36 Room Air 06/11/22 07:57 36.7 C 76 16 101/70 96 Room Air 06/11/22 07:17 57 L 06/11/22 03:00 36.9 C 75 18 97/60 L 95 Room Air Laboratory Results Short CBC 06/11/22 Range/Units 06:21 WBC 9.34 (4.8-10.8) K/ul Hgb 12.2 (12.0-16.0) g/dl Hct 35.6 L (37.0-47.0) % Plt Count 294 (130-400) K/uL BMP 06/11/22 06:21 Sodium 140 Potassium 3.7 Chloride 106 Carbon Dioxide 27 BUN 6 Creatinine 0.71 Glucose 89 Calcium 8.8
--- NOTE | 2022-06-11 12:58 | Discharge Summary ---
Date of Service June 11, 2022 Admission HPI Per Admitting Provider History obtained from patient and records. Medical history significant for mood disorder, exercise-induced asthma. 1 day history of fever and body aches. Dry cough and sinus headache symptoms. Sick contacts at home. Patient denies chest pain, SOB, abdominal pain, dysuria symptoms. Patient consulted ER. IV ceftriaxone administered for possible sepsis. 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 Admission Exam Per Admitting Provider GENERAL: Slightly uncomfortable, ill-appearing, pleasant, no respiratory di stress SKIN: Normal color, warm HEENT: [place] palpebral conjunctivae, no ptosis, dry buccal mucosa NECK : Supple, no tenderness CHEST : CTA, no tenderness HEART : Tachycardic, no obvious murmurs ABDOMEN: no distention, nontender EXTREMITIES : No LE swelling/tenderness, no other conspicuous deformities noted NEUROLOGIC : Coherent, no facial asymmetry, no other gross focality Principal Diagnosis Sepsis Acute Bronchitis Discharge Data Allergies Allergy/AdvReac Type Severity Reaction Status Date / Time No Known Allergies Allergy Verified 06/07/22 21:39 Consultations 06/07/22 22:39 ED Decision to Admit Stat Procedures Performed Laboratory Results WBC 9.34 K/ul (4.8-10.8) 06/11/22 06:21 RBC 4.01 M/uL (4.20-5.40) L 06/11/22 06:21 Hgb 12.2 g/dl (12.0-16.0) 06/11/22 06:21 Hct 35.6 % (37.0-47.0) L 06/11/22 06:21 MCV 88.8 fL (80.0-100.0) 06/11/22 06:21 MCH 30.4 pg (25.0-34.0) 06/11/22 06:21 MCHC 34.3 g/dL (32.0-36.0) 06/11/22 06:21 RDW Std Deviation 40.9 fL (36.4-46.3) 06/11/22 06:21 RDW Coeff of Pablo 12.4 % (11.5-14.5) 06/11/22 06:21 Plt Count 294 K/uL (130-400) 06/11/22 06:21 MPV 9.7 fL (9.4-12.4) 06/11/22 06:21 Immature Gran % (Auto) 1.3 % 06/08/22 07:32 Neut % (Auto) 86.9 % 06/08/22 07:32 Lymph % (Auto) 6.6 % 06/08/22 07:32 [place] % (Auto) 5.0 % 06/08/22 07:32 Eos % (Auto) 0.0 % 06/08/22 07:32 Baso % (Auto) 0.2 % 06/08/22 07:32 Neut # (Auto) 18.53 K/uL (1.40-6.50) H 06/08/22 07:32 Lymph # (Auto) 1.40 K/uL (1.2-3.4) 06/08/22 07:32 [place] # (Auto) 1.06 K/uL (0.11-0.59) H 06/08/22 07:32 Eos # (Auto) 0.00 K/uL (0-0.50) 06/08/22 07:32 Baso # (Auto) 0.04 K/uL (0-0.2) 06/08/22 07:32 Immature Gran # (Auto) 0.27 K/uL (0.01-0.20) H 06/08/22 07:32 Sodium 140 mmol/L (136-145) 06/11/22 06:21 Potassium 3.7 mmol/L (3.5-5.1) 06/11/22 06:21 Chloride 106 mmol/L (98-107) 06/11/22 06:21 Carbon Dioxide 27 mmol/L (21-32) 06/11/22 06:21 Anion Gap 7 (3-11) 06/11/22 06:21 BUN 6 mg/dl (6-23) 06/11/22 06:21 Creatinine 0.71 mg/dl (0.6-1.2) 06/11/22 06:21 Est Cr Clr Drug Dosing 100.0 ml/min 06/11/22 06:21 Est GFR ( Amer) 130.6 ml/min 06/11/22 06:21 Est GFR (Non-Af Amer) 112.7 ml/min 06/11/22 06:21 BUN/Creatinine Ratio 8.5 (10-20) L 06/11/22 06:21 Glucose 89 mg/dl (70-99(Fasting)) 06/11/22 06:21 Estimat Average Glucose 105 mg/dl 06/07/22 23:07 Hemoglobin A1c 5.3 % (4.5-5.6) 06/07/22 23:07 Lactate 0.8 mmol/L (0.4-2.0) 06/07/22 23:07 Calcium 8.8 mg/dl (8.5-10.1) 06/11/22 06:21 Magnesium 1.9 mg/dl (1.7-2.4) 06/10/22 07:23 Total Bilirubin 0.4 mg/dl (0.2-1.0) 06/07/22 21:10 AST 29 U/L (13-39) 06/07/22 21:10 ALT 25 U/L (7-52) 06/07/22 21:10 Alkaline Phosphatase 58 U/L (34-104) 06/07/22 21:10 Total Creatine Kinase 65 U/L (26-192) 06/07/22 21:10 Troponin I High Sens 4.2 pg/ml (0-14) 06/07/22 21:10 Total Protein 8.0 gm/dl (6.0-8.3) 06/07/22 21:10 Albumin 4.3 gm/dl (3.4-5.0) 06/07/22 21:10 Globulin 3.7 gm/dl (2.5-4.0) 06/07/22 21:10 Albumin/Globulin Ratio 1.2 (0.9-2) 06/07/22 21:10 Procalcitonin 0.24 ng/ml (0-0.5) 06/07/22 21:10 Urine Color Yellow 06/07/22 22:37 Urine Appearance Clear (Clear) 06/07/22 22:37 Urine pH 6.5 (4.5-7.5) 06/07/22 22:37 Ur Specific [place] 1.008 (1.000-1.030) 06/07/22 22:37 Urine Protein Negative (Negative) 06/07/22 22:37 Urine Glucose (UA) Negative (Negative) 02/11/23 22:37 Urine Ketones Negative (Negative) 06/07/22 22:37 Urine Blood Negative (Negative) 06/07/22 22:37 Urine Nitrite Negative (Negative) 06/07/22 22:37 Urine Bilirubin Negative (Negative) 06/07/22 22:37 Urine Urobilinogen Negative (Negative) 06/07/22 22:37 Ur Leukocyte Esterase Trace (Negative) H 06/07/22 22:37 Urine WBC (Auto) 1-5 /hpf (0-5) 06/07/22 22:37 Urine RBC (Auto) 10-30 /hpf (0-4) H 06/07/22 22:37 U Hyaline Cast (Auto) 0 /lpf (0-5) 06/07/22 22:37 U Epithel Cells (Auto) 20-30 /lpf (0-5) H 06/07/22 22:37 Urine Bacteria (Auto) 1+ (Negative) H 06/07/22 22:37 Adenovirus (PCR) Not Detected (NotDetected) 06/07/22 21:00 B. pertussis DNA (PCR) Not Detected (NotDetected) 06/07/22 21:00 B.parapertussis DNA PCR Not Detected (NotDetected) 06/07/22 21:00 Lyme Disease IgG Ab Negative (Negative) 06/07/22 21:10 Lyme Disease IgM Ab Negative (Negative) 06/07/22 21:10 C. pneumoniae DNA (PCR) Not Detected (NotDetected) 06/07/22 21:00 Coronavirus OC43 (PCR) Not Detected (NotDetected) 06/07/22 21:00 Coronavirus HKU1 (PCR) Not Detected (NotDetected) 06/07/22 21:00 Coronavirus 229E (PCR) Not Detected (NotDetected) 06/07/22 21:00 SARS-CoV-2 (PCR) NEGATIVE (Negative) 06/08/22 12:12 Coronavirus NL63 (PCR) Not Detected (NotDetected) 06/07/22 21:00 Human Metapneumovir PCR Not Detected (NotDetected) 06/07/22 21:00 Influenza Type A (PCR) Negative (Neg) 06/08/22 12:12 Influenza Type B (PCR) Negative (Neg) 06/08/22 12:12 M. pneumoniae (PCR) Not Detected (NotDetected) 06/07/22 21:00 Parainfluenza 1 (PCR) Not Detected (NotDetected) 06/07/22 21:00 Parainfluenza 2 (PCR) Not Detected (NotDetected) 06/07/22 21:00 Parainfluenza 3 (PCR) Not Detected (NotDetected) 06/07/22 21:00 Parainfluenza 4 (PCR) Not Detected (NotDetected) 06/07/22 21:00 RSV (RT-PCR) Negative (Neg) 06/08/22 12:12 RSV (PCR) Not Detected (NotDetected) 06/07/22 21:00 Entero/Rhino (PCR) Not Detected (NotDetected) 06/07/22 21:00 Impressions Chest X-Ray 06/07/22 21:13 XR chest 1V portable HISTORY: Fever COMPARISON: None. FINDINGS: The lungs are clear. Cardiac silhouette is normal in size. No pleural effusions. No pneumothorax. IMPRESSION: No acute process. ACT 112: Negative or not required by law. Electronically signed by: Maury Wick M.D. 06/08/2022 7:[address] 06/09/22 00:30 CT head/brain wo con CLINICAL HISTORY: 32 years-old Female with bush. Acute headache TECHNIQUE: Multiple axial CT images of the head were obtained without contrast. A dose lowering technique was utilized adhering to the principles of ALARA. CT DOSE: 537.48 mGy.cm COMPARISON: None. FINDINGS: No acute intracranial hemorrhage, midline shift, intracranial mass, hydrocephalus, territorial ischemia or abnormal extra-axial collection. Low- lying cerebellar tonsils. The calvarium is intact. The paranasal sinuses, mastoid air cells, and middle ear cavities are clear. IMPRESSION: No acute intracranial abnormality. ACT 112: Negative or not required by law. The above report was generated using voice recognition software. It may contain grammatical, syntax or spelling errors. Electronically signed by: Joshua Braswell M.D. 06/09/2022 6:41 AM Ordered Studies 06/09/22 00:30 CT head/brain wo con Urgent Hospital Course (1) Sepsis: Sepsis Likely Streptococcal Bronchitis DD: Less likely viral etiology +Family contact with Strep infection --CXR:The lungs are clear. Cardiac silhouette is normal in size. No pleural effusions. No pneumothorax. --Biofire: Negative --Normal procalcitonin, lactate levels --Blood Cultures:No growth to date --Urine culture: Lactobacillus --Negative Lyme Screen Received IV fluids Continue Zosyn, doxycycline>> transition to p.o. antibiotics upon discharge Leukocytosis normalized Plan to discharge home today Chronic Hypotension BP usually low per patient Monitor BP Hypokalemia Replace as needed Monitor Hyperglycemia HbA1C: 5.3 Mood disorder stable Continue venlafaxine DVT Px: Lovenox SQ Code Status Full code Total Time Total Time Spent Total Time Spent (In Minutes): 50 minutes Discharge Plan Discharge Items Patient Disposition: Home - Self-Care Reason For Visit: SEPSIS Discharge Diagnosis: Sepsis Acute Bronchitis Activity: Per Instructions section Exercise/Sports: Gradually increase as tolerated Non-emergency contact: Primary Care Provider Call non-emergency contact if: you have any medication questions, your symptoms worsen, your pain is not controlled, your pain is concerning for you and you have a fever Follow-up/Referrals: Efrem Verma MD [Primary Care Provider] - (Date & Time 06/17/2022 9:20 AM Provider LEÓN Foreman Department [facility] ) Diet: Heart Healthy Addtl Attending Provider Instructions: Follow-up with your primary care physician on 06/17/2022 9:20 AM -- Complete antibiotic course (doxycycline, Augmentin) as prescribed -- Blood cultures are pending at the time of discharge. Follow-up with your physician for results. Seek immediate medical attention if your symptoms reoccur or worsen Please take all medications as instructed on discharge list below. Please call if you have any questions or problems. You can reach a [facility] hospitalist on duty at [facility] 24 hours a day by calling [phone] Pending Studies at Discharge: Yes Studies:: Blood Cultures Stand-Alone Forms: My [facility] [address] Diasome, Smoking Cessation Medications and DC Order Prescriptions: New doxycycline hyclate 100 mg Capsule 100 mg PO BID Qty: 3 0RF amoxicillin-pot clavulanate [Augmentin] 500-125 mg tablet 1 tab PO BID Qty: 10 0RF Continued venlafaxine 75 mg capsule,extended release 24hr 75 mg PO DAILY Discharge Orders: Discharge Order (Routine); Ordered 06/11/22 Ordered By: Yoan Hanson Admission Data Admit Date/Time: 06/07/22 22:55 Attending Provider: Yoan Hanson Admit Provider: Ryan Wilkerson Primary Care Provider: Efrem Verma Other Providers: Ryan Wilkerson
== END 2022-06-11 14:55 | disposition home or self-care (01) ==
LOC: ED 20:29 → INTOOBSV 22:55 → SUATTDRO 22:55 → 2W 22:55

== ENCOUNTER 2025-04-12 11:52 | Inpatient (IN) ==
[2025-04-12 12:35] LABS: Hematocrit (blood only) 38.9 % (37.0-47.0); Hemoglobin 13.1 g/dL (12.0-16.0); Immature Granulocytes # (auto) 0.15 K/uL (0.01-0.20); Immature Granulocytes % (auto) 0.9 %; Mean Corpuscular Hemoglobin 29.2 pg (25.0-34.0); Mean Corpuscular Volume 86.6 fL (80.0-100.0); Platelet Count 387 K/uL (130-400); RDW Standard Deviation 40.4 fL (36.4-46.3); Red Blood Count 4.49 M/uL (4.20-5.40); White Blood Count 16.21 K/ul (4.8-10.8)
--- NOTE | 2025-04-12 12:59 | Emergency Department Note ---
History of Present Illness General Chief complaint: Sore Throat Stated complaint: STREP SINCE 04/04 NOT ANY BETTER ON ANITIBIOTICS Time Seen by Provider: 04/12/25 12:33 Source: patient Mode of arrival: ambulatory Limitations: no limitations History of Present Illness Maximum Pain Intensity: 6 Patient is a 35-year-old female who presents with persistent sore throat and fever for greater than 1 week. She was initially diagnosed with strep throat on 04/04/2025. She has been on multiple antibiotics however her pain has not improved and she feels like the swelling on her neck has gotten worse. Pain is bilateral. She is tolerating fluids and some food. She is taking ibuprofen intermittently for pain. She does have a history of prior tonsillectomy in the past. Denies any headache, neck stiffness, chest pain, shortness of breath, difficulty controlling secretions. Home Medications Medication Instructions Recorded Confirmed Type amoxicillin 875 mg-potassium 1 tab PO BID 04/12/25 04/12/25 History clavulanate 125 mg tablet norethindrone acetate 1 mg-ethinyl 1 tab PO DAILY 04/12/25 04/12/25 History estradiol 20 mcg tablet (Aurovela) venlafaxine 150 mg 150 mg PO DAILY 04/12/25 04/12/25 History capsule,extended release 24 hr Allergies Allergy/AdvReac Type Severity Reaction Status Date / Time No Known Allergies Allergy Verified 04/12/25 15:06 Past Med/Surg History Problem List (Updated 04/12/25 @ 17:34 by Ruben Wolff MD) Dysphagia Odynophagia Short of breath on exertion Pharyngitis (Acute) Sepsis (Acute) Medical History External hemorrhoid Urinary problem Surgical History [place] teeth extracted (~12/08/07) History of appendectomy (~05/02/08) Social History Smoking Status: Never smoker Second Hand Exposure: No; Do You Dip or Chew Tobacco: No; Hx Alcohol Use: Yes Alcohol type: beer Hx Substance Use: No Preferred Language: Bolivian Communication Ability: Effective Last Inserter Required: No Beliefs That Will Affect Care: None marital status: Current Living Situation: Family current occupational status: employed Feels Safe at Home: Yes Assistive Devices: None Review of Systems Review of systems negative outside of positive findings mentioned in HPI. Physical Exam Vital Signs Vital Signs - 24 hr 04/12/25 12:00 04/12/25 14:21 04/12/25 14:30 Temperature 37.1 C Temperature Source Temporal Artery Scan Pulse Rate 112 H 95 H Pulse Rate [Finger] 92 H Pulse Rate from SpO2 Sensor 94 H Pulse Rhythm [Finger] Pulse Strength [Finger] Respiratory Rate 18 20 26 H Respiratory Effort / Characteristics Respiratory Depth Respiratory Pattern Blood Pressure 108/73 110/74 Blood Pressure [Right Arm] 100/65 Blood Pressure Mean 84 86 Blood Pressure Mean [Right Arm] 76 Blood Pressure Position [Right Arm] Pulse Oximetry 96 96 95 Oxygen Delivery Method Room Air Room Air Room Air Sepsis New/Unexplained Change in Mental Status No Sepsis Action Taken by Nursing No Action Required 04/12/25 14:31 04/12/25 14:45 04/12/25 16:52 Temperature Temperature Source Pulse Rate 95 H 92 H Pulse Rate [Finger] 79 Pulse Rate from SpO2 Sensor 92 H Pulse Rhythm [Finger] Regular Pulse Strength [Finger] Normal Respiratory Rate 14 16 Respiratory Effort / Characteristics Non-Labored Spontaneous Respiratory Depth Normal Respiratory Pattern Regular Blood Pressure 110/74 Blood Pressure [Right Arm] 106/68 Blood Pressure Mean 86 Blood Pressure Mean [Right Arm] 80 Blood Pressure Position [Right Arm] Lying Pulse Oximetry 96 95 Oxygen Delivery Method Room Air Room Air Sepsis New/Unexplained Change in Mental Status Sepsis Action Taken by Nursing See below Constitutional WD/WN, vitals as above Eyes PERRL, conjunctivae normal, anicteric sclerae ENMT Erythema to the tonsillar pillars bilaterally, uvula midline, surgically absent tonsils, cervical adenopathy noted bilaterally Neck trachea midline, no thyromegaly no nuchal rigidity and no limited neck extension Respiratory normal respiratory effort, lungs clear to auscultation Cardiovascular RRR, no murmur, no edema Course Administered Medications Discontinued Medications Dexamethasone (Dexamethasone Sod Inj 4 Mg/Ml Vial) 10 mg IV NOW STA Stop: 04/12/25 12:42 Last Admin: 04/12/25 13:29 Dose: 10 mg Documented By: MPD Ampicillin Sodium/Sulbactam Sodium (Unasyn) 3,000 mg in 100 mls @ 200 mls/hr IV NOW STA Stop: 04/12/25 13:10 Last Infusion: 04/12/25 14:15 Dose: Infused Documented By: Admin: 04/12/25 13:22 Dose: 200 mls/hr Documented By: PILO Ioversol (Optiray 320 100ml) 94 ml IV ONCE ONE Stop: 04/12/25 14:12 Last Admin: 04/12/25 14:11 Dose: 94 ml Documented By: KAROLINE Ketorolac Tromethamine (Ketorolac Tromethamine 15 Mg/Ml Vial) 15 mg IV NOW ONE Stop: 04/12/25 12:42 Last Admin: 04/12/25 13:23 Dose: 15 mg Documented By: PILO Miscellaneous (Rapid Sequence Induction Bag) Confirm Administered Dose 1 each N/A .STK-MED ONE Stop: 04/12/25 14:26 Last Admin: 04/12/25 14:49 Dose: Not Given Documented By: ABBIE Medical Decision Making Differential Diagnosis DDx includes but not limited to: NON DESTRUCTIVE TESTING SUPERVISOR, RPA, pharyngitis, epiglottitis, esophagitis, thyroid disease, lymphadenitis Medical Records Attestation: I reviewed the patient's medical records. Home Medications Current Medication List: was personally reviewed by me Laboratory Data Attestation: I reviewed the patient's lab results. 04/12/25 Unknown 04/12/25 Unknown Lab Results 04/12/25 Range/Units Unknown WBC 16.21 H (4.8-10.8) K/ul RBC 4.49 (4.20-5.40) M/uL Hgb 13.1 (12.0-16.0) g/dL Hct 38.9 (37.0-47.0) % MCV 86.6 (80.0-100.0) fL MCH 29.2 (25.0-34.0) pg MCHC 33.7 (32.0-36.0) g/dL RDW Std Deviation 40.4 (36.4-46.3) fL RDW Coeff of Pablo 12.8 (11.5-14.5) % Plt Count 387 (130-400) K/uL MPV 8.9 L (9.4-12.4) fL Immature Gran % (Auto) 0.9 % Neut % (Auto) 74.0 % Lymph % (Auto) 18.9 % [place] % (Auto) 5.9 % Eos % (Auto) 0.1 % Baso % (Auto) 0.2 % Neut # (Auto) 11.98 H (1.40-6.50) K/uL Lymph # (Auto) 3.07 (1.20-3.40) K/uL [place] # (Auto) 0.96 H (0.11-0.59) K/uL Eos # (Auto) 0.01 (0.00-0.50) K/uL Baso # (Auto) 0.04 (0.00-0.20) K/uL Immature Gran # (Auto) 0.15 (0.01-0.20) K/uL Sodium 135 L (136-145) mmol/L Potassium 3.9 (3.5-5.1) mmol/L Chloride 101 (98-107) mmol/L Carbon Dioxide 26 (21-32) mmol/L Anion Gap 8 (3-11) BUN 5 L (6-23) mg/dl Creatinine 0.75 (0.6-1.2) mg/dl Est Cr Clr Drug Dosing 94.4 ml/min eGFR 106.41 BUN/Creatinine Ratio 6.7 L (10-20) Glucose 97 (70-99(Fasting)) mg/dl Calcium 9.0 (8.6-10.3) mg/dl Total Bilirubin 0.4 (0.2-1.0) mg/dl AST 16 (13-39) U/L ALT 10 (7-52) U/L Alkaline Phosphatase 55 (34-104) U/L Total Protein 8.2 (6.0-8.3) gm/dl Albumin 4.2 (3.4-5.0) gm/dl Globulin 4.0 (2.5-4.0) gm/dl Albumin/Globulin Ratio 1.1 (0.9-2) Monoscreen Negative (Negative) Group A Strep (PCR) NOT DETECTED (NotDetected) Imaging Data Radiologist's Impression: Soft Tissue Neck CT 04/12/25 12:41 CT SCAN OF THE NECK WITH IV CONTRAST CLINICAL HISTORY: Persistent infection of the throat. Leukocytosis. COMPARISON STUDY: No priors TECHNIQUE: Following the IV administration of negative for cc of Optiray 320, CT scan of the soft tissues of the neck was performed from the skull base to the upper chest. Images are reviewed in the axial, sagittal, and coronal planes. IV contrast was administered without complication. A dose lowering technique was utilized adhering to the principles of ALARA. CT DOSE: 435.51 mGy.cm FINDINGS: Pharynx: The pharyngeal soft tissues appear thickened with mucosal hyperemia. This causes mild to moderate effacement of the pharyngeal airway. The tonsils are diminutive versus surgically absent. No peritonsillar fluid collection is seen. There is no evidence of mass lesion. The vocal cords are symmetric. The parapharyngeal fat is well maintained. The epiglottis is normal. The prevertebral/retropharyngeal soft tissues are within normal limits. Lymphadenopathy: There are numerous enlarged cervical chain lymph nodes bilaterally. A taya aggregate in the right cervical chain on image #193 measures 2.4 x 1.5 cm and a left cervical chain node on image #199 measures 1.9 x 1.7 cm. Thyroid: Normal in size and attenuation. Salivary glands: The parotid and submandibular glands are within normal limits. Brain parenchyma: The visualized brain parenchyma at the skull base is normal in appearance. Vascular structures: The carotid arteries and jugular veins are patent bilaterally. Skeletal structures: Imaged portions of the calvarium at the skull base are within normal limits. The cervical spine appears intact. Orbits: The bony orbits are intact. Orbital contents are normal as visualized. Sinuses and mastoids: The paranasal sinuses are clear. The mastoid air cells are well pneumatized. Lung apices: Visualized apical lung parenchyma is clear. IMPRESSION: 1. There is evidence of a nonspecific pharyngitis. 2. No peritonsillar abscess is seen. 3. There are numerous enlarged bilateral cervical chain lymph nodes. These are likely reactive. Mononucleosis is a differential consideration. 4. Edema causes [id number] effacement of the pharyngeal airway. ACT 112: Negative or not required by law. Electronically signed by: Marco A Johnson M.D. 04/12/2025 2:36 PM Chest X-Ray 04/12/25 15:38 Technique: A frontal view of the chest was obtained Comparison is made the prior examination dated 06/07/2022 Findings: There are no confluent pulmonary infiltrates. The heart size is within normal limits. No pleural effusion or pneumothorax is seen. There is mild left lung base atelectasis No fracture is noted. No foreign body is seen Impression: Mild left lung base atelectasis Electronically signed by Gerson Mcfarland 04-12-2025 4:27 PM [facility] Narrative Patient is a 35-year-old female who presents for persistent sore throat as well as difficulty swallowing for several weeks. She was diagnosed with strep pharyngitis and finished multiple course of antibiotics without improvement in symptoms. Afebrile nontoxic-appearing here today. She is protecting her airway. No difficulty tolerating secretions. She is able to keep fluids down at home. Lab work and imaging was ordered. CT scan was notable for edema with mild to moderate effacement of the pharyngeal airway in the setting of nonspecific pharyngitis. Epiglottis was normal. I did touch base with anesthesia Dr. Deluca based on the severity of the swelling noted on CT. He did evaluate patient at bedside and notes clinically she does not have any indication for prophylactic intubation but does recommend airway watch overnight. Spoke with the PA with ICU team who will admit for airway watch and further management. IV Decadron and Unasyn was given here in the ED. Monospot test negative. Group A strep test negative as well. Throat culture pending. Remaining lab work reviewed and consistent with her pharyngitis. Patient remained stable here in the ED. Authorized and Performed by: Dr. Wolff Total critical care time: Approximately 35 CC diagnosis: Pharyngitis with possible airway compromise Due to a high probability of clinically significant, life threatening deterioration, the patient required my highest level of preparedness to intervene emergently and I personally spent this critical care time directly and personally managing the patient. This critical care time included obtaining a history; examining the patient; pulse oximetry; ordering and review of studies; arranging urgent treatment with development of a management plan; evaluation of patient's response to treatment; frequent reassessment; and, discussions with other providers. This critical care time was performed to assess and manage the high probability of imminent, life-threatening deterioration that could result in multi-organ failure. It was exclusive of separately billable procedures and treating other patients and teaching time. Please see MDM section and the rest of the note for further information on patient assessment and treatment. Impression & Plan Pharyngitis Discharge Plan Visit Data Chief Complaint: Sore Throat Stated Complaint: STREP SINCE 04/04 NOT ANY BETTER ON ANITIBIOTICS ED Provider: Ruben Wolff Discharge Problem: Pharyngitis Patient Disposition: Admitted As Inpatient Condition: Fair Forms Stand Alone Forms: My [facility] Prescriptions Prescriptions: No Action norethindrone ac-eth estradiol [Aurovela 05/16 ()] 1-20 mg-mcg tablet 1 tab PO DAILY venlafaxine 150 mg capsule,extended release 24hr 150 mg PO DAILY amoxicillin-pot clavulanate 875-125 mg tablet 1 tab PO BID Rx Instructions: ORDERED 04/10/25 TAKE FOR 10 DAYS Referrals Referrals: Efrem Verma MD [Primary Care Provider] -
[2025-04-12] MEDS: AMPICILLIN/SULBACTAM SOD 3,000 MG/100 ML BAG IV STA (13:22)
[2025-04-12] MEDS: KETOROLAC TROMETHAMINE 15 MG/ML VIAL IV ONE (13:23)
[2025-04-12] MEDS: DEXAMETHASONE SOD INJ 4 MG/ML VIAL IV STA (13:29)
[2025-04-12 13:42] LABS: Albumin Level 4.2 gm/dl (3.4-5.0); Anion Gap 8.0 (3-11); Bilirubin,Total 0.4 mg/dl (0.2-1.0); Calcium 9.0 mg/dl (8.6-10.3); Carbon Dioxide 26.0 mmol/L (21-32); Chloride 101.0 mmol/L (98-107); Potassium 3.9 mmol/L (3.5-5.1); Sodium 135.0 mmol/L (136-145)
[2025-04-12 13:48] LABS: Alanine Aminotransferase 10.0 U/L (7-52); Albumin Globulin Ratio 1.1 (0.9-2); Alkaline Phosphatase 55.0 U/L (34-104); Blood Urea Nitrogen 5.0 mg/dl (6-23); Creatinine Clr Calc Pharmacy 94.4 ml/min; Globulin 4.0 gm/dl (2.5-4.0); Glucose 97.0 mg/dl (70-99(Fasting)); Total Protein 8.2 gm/dl (6.0-8.3)
[2025-04-12] MEDS: OPTIRAY 320 100ml IV ONE (14:11)
--- NOTE | 2025-04-12 14:37 | CT Scan Report ---
CT SCAN OF THE NECK WITH IV CONTRAST CLINICAL HISTORY: Persistent infection of the throat. Leukocytosis. COMPARISON STUDY: No priors TECHNIQUE: Following the IV administration of negative for cc of Optiray 320, CT scan of the soft tis sues of the neck was performed from the skull base to the upper chest. Images are reviewed in the axi al, sagittal, and coronal planes. IV contrast was administered without complication. A dose lowerin g technique was utilized adhering to the principles of ALARA. CT DOSE: 435.51 mGy.cm FINDINGS: Pharynx: The pharyngeal soft tissues appear thickened with mucosal hyperemia. This causes mild to mod erate effacement of the pharyngeal airway. The tonsils are diminutive versus surgically absent. No pe ritonsillar fluid collection is seen. There is no evidence of mass lesion. The vocal cords are symmet jimmie. The parapharyngeal fat is well maintained. The epiglottis is normal. The prevertebral/retrophary ngeal soft tissues are within normal limits. Lymphadenopathy: There are numerous enlarged cervical chain lymph nodes bilaterally. A taya aggregat e in the right cervical chain on image #193 measures 2.4 x 1.5 cm and a left cervical chain node on i mage #199 measures 1.9 x 1.7 cm. Thyroid: Normal in size and attenuation. Salivary glands: The parotid and submandibular glands are within normal limits. Brain parenchyma: The visualized brain parenchyma at the skull base is normal in appearance. Vascular structures: The carotid arteries and jugular veins are patent bilaterally. Skeletal structures: Imaged portions of the calvarium at the skull base are within normal limits. The cervical spine appears intact. Orbits: The bony orbits are intact. Orbital contents are normal as visualized. Sinuses and mastoids: The paranasal sinuses are clear. The mastoid air cells are well pneumatized. Lung apices: Visualized apical lung parenchyma is clear. IMPRESSION: 1. There is evidence of a nonspecific pharyngitis. 2. No peritonsillar abscess is seen. 3. There are numerous enlarged bilateral cervical chain lymph nodes. These are likely reactive. [place] ucleosis is a differential consideration. 4. Edema causes [id number] effacement of the pharyngeal airway. ACT 112: Negative or not required by law. Electronically signed by: Marco A Johnson M.D. 04/12/2025 2:36 PM
[2025-04-12] MEDS: RAPID SEQUENCE INDUCTION BAG ONE (14:49)
--- NOTE | 2025-04-12 14:57 | Communication Note ---
Date of Service: April 12, 2025 Called to bedside to evaluate need for emergent airway assistance d/t concern for epiglottitis. CT imaging concern for significant glottic obstruction, however, on clinical exam the patient is experiencing no respiratory distress and is adequately saturating on RA. The patient is calm and speaking in a normal voice in complete sentences with no excessive secretions. After discussion with ED attending, the plan was to consult ICU and ENT for further management. If further airway management is deemed necessary, will be available to provide assistance. Yosi NATH
--- NOTE | 2025-04-12 15:47 | Critical Care Consultation ---
Date of Consultation April 12, 2025 Assessment & Plan (1) Pharyngitis: (2) Short of breath on exertion: (3) Odynophagia: (4) Dysphagia: Plan -- Strep pharyngitis CT of the neck 04/12/2025 shows mild to moderate effacement of the pharyngeal airway with edema Mononucleosis screen negative Group A strep was negative on PCR on 04/12/2025 Patient got dexamethasone Continue with Unasyn Evaluated by ENT in the ED, no intervention from their end for the time being -- Anxiety/depression Continue with venlafaxine -- Leukocytosis Likely secondary to infection Continue to trend --Prophylaxis VTE: Lovenox GI: Normal Lines: Peripheral Diet: N.p.o. Plan: Recommend to continue with Unasyn Dexamethasone 5 milligrams every 8 hours Magic mouthwash for odynophagia The patient's swallowing/swelling improves then trial of clear liquids Follow-up chest x-ray All questions inquiries of patient as well as patient's mother were answered in depth Please note the above document was generated using voice recognition software. It may contain grammatical, syntax or spelling errors.Any formal questions or concerns about the content, text or information contained within the body of this dictation should be directly addressed to the provider for clarification. History of Present Illness History of Present Illness 35-year-old female came to the hospital because of sore throat and difficulty swallowing. Sent to the ICU because of narrowing of airway appreciated on this CAT scan of the neck Past medical history: Anxiety/depression, childhood history of asthma, not on any inhalers At the time of examinations patient's mother was in the room Patient was saturating 96-97% on room air while wearing a mask. Systolic blood pressure was in the high 110s, heart rate in the high 80s to low 90s She was able to talk in full sentences She stated that she has been having issues with sore throat since 04/04/2025. She had a strep test done at that time which was positive and she was started on amoxicillin On 10 April she was still not feeling well so her primary care changed the medication from amoxicillin to Augmentin. She was still complaining of significant odynophagia and came to the ER Denies any chills but did have subjective fevers No dysuria or diarrhea prior to coming to the hospital. Denies any chest pain but complains of some chest heaviness. No headache, no blurry vision Denies any sick contacts, she does have kids who are doing well healthwise right now Social history: Lifetime non-smoker. 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 Allergies Allergy/AdvReac Type Severity Reaction Status Date / Time No Known Allergies Allergy Verified 04/12/25 15:06 Home Medications Medication Instructions Recorded Confirmed Type amoxicillin 875 mg-potassium 1 tab PO BID 04/12/25 04/12/25 History clavulanate 125 mg tablet norethindrone acetate 1 mg-ethinyl 1 tab PO DAILY 04/12/25 04/12/25 History estradiol 20 mcg tablet (Aurovela) venlafaxine 150 mg 150 mg PO DAILY 04/12/25 04/12/25 History capsule,extended release 24 hr Patient History Medical History External hemorrhoid Urinary problem Surgical History [place] teeth extracted (~12/08/07) History of appendectomy (~05/02/08) Social History Smoking Status: Never smoker Second Hand Exposure: No; Do You Dip or Chew Tobacco: No; Hx Alcohol Use: Yes Alcohol type: beer Hx Substance Use: No Preferred Language: Wolof Communication Ability: Effective 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 Beliefs That Will Affect Care: None marital status: Current Living Situation: Family current occupational status: employed Feels Safe at Home: Yes Assistive Devices: None Review of Systems 2 Review of Systems: All systems reviewed & are unremarkable except as noted in HPI & below Physical Exam 2 Physical Exam: Constitutional: No acute distress HEENT: EOMI, PERRLA, minimal inspiratory stridor which is variable, not present on every breath, able to talk in full sentences Respiratory system: Good air entry bilaterally, no wheeze, no rhonchi, minimal crackles left lower lobe CVS: S1-S2 positive, no murmurs or gallops Abdomen: Soft, nontender, nondistended, positive bowel sounds x4 Extremities: +2 pulses bilaterally radialis/ dorsalis pedis, no cyanosis, no edema Neuro: Awake alert oriented x3 Psych: Normal mood and affect G/U: No [place] Results & Data Results & Data Vital Signs (Past 12 Hours) Vital Signs Temp Pulse Pulse Resp BP BP Pulse Ox 04/12/25 14:45 92 H 14 110/74 96 04/12/25 14:31 95 H 04/12/25 14:30 95 H 26 H 110/74 95 04/12/25 14:21 92 H 20 100/65 96 04/12/25 12:00 37.1 C 112 H 18 108/73 96 O2 Del Method 04/12/25 14:45 Room Air 04/12/25 14:31 04/12/25 14:30 Room Air 04/12/25 14:21 Room Air 04/12/25 12:00 Room Air Laboratory Results 04/12/25 Unknown 04/12/25 Unknown Coding Level of Care Code 96856 IN/OBS CONSULT LVL 4,60M Diagnoses Pharyngitis J02.9 Short of breath on exertion R06.02 Odynophagia R13.10 Dysphagia R13.10
--- NOTE | 2025-04-12 16:27 | XRay Report ---
Technique: A frontal view of the chest was obtained Comparison is made the prior examination dated 06/07/2022 Findings: There are no confluent pulmonary infiltrates. The heart size is within normal limits. No pleural effusion or pneumothorax is seen. There is mild left lung base atelectasis No fracture is noted. No foreign body is seen Impression: Mild left lung base atelectasis Electronically signed by Gerson Mcfarland 04-12-2025 4:27 PM
[2025-04-12] MEDS ORDERED: DEXAMETHASONE SOD INJ 4 MG/ML VIAL IV SCH (18:00)
[2025-04-12] MEDS: dexAMETHasone 5 MG in SYRINGE 0 ML IV SCH (18:20)
[2025-04-12] MEDS: AMPICILLIN/SULBACTAM SOD 1,500 MG/100 ML BAG IV SCH (18:59)
--- NOTE | 2025-04-12 21:06 | History & Physical Report ---
Date of Service April 12, 2025 Assessment & Plan (1) Airway compromise: Plan: Pressure patient has been evaluated by ENT, anesthesia and critical care medicine. No urgent need for intubation but close observation in the ICU is warranted Status post IV Decadron and will continue every 6 hours Close observation of airway N.p.o. (2) Neck swelling: Plan: Neck swelling and adenopathy due to recent pharyngitis Continue steroids (3) Dysphagia: Plan: Continue n.p.o. status for now there is a (4) Pharyngitis: Plan: Given 1 dose of IV Unasyn Ampicillin IV every 6 hours alerted by critical care medicine Appreciate critical care medicine consult Continuity IV steroids as above Elevated white count secondary to an infection and pharyngitis. Will trend labs (5) Depression with anxiety: Plan: Restart Effexor when able to take p.o. safely Plan Patient is a full code VTE prophylaxis: Lovenox per critical care medicine Restart OCPs tomorrow when taking p.o. Total time 75 minutes spent in the care of coordination and care delivery for this patient. 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 She has 2 twin 6-year-old daughters who are not ill. She was diagnosed with strep throat on 04/04/2025. She was started on amoxicillin and then this was changed to Augmentin which she is currently on. Despite this the sore throat has not improved and she feels like the swelling around her neck has gotten worse. She has bilateral neck pain and feels as though her glands are swollen. She states her ears hurt as a child but has limited. She is tolerating fluids and some food. She is taking ibuprofen intermittently for pain. She does have a history of prior tonsillectomy in the past. Denies any headache, neck stiffness, chest pain, shortness of breath, difficulty controlling secretions. Workup in the ED reveals an elevated white count to 16,000. CT scan of the neck shows mild to moderate effacement of the pharyngeal airway. There is no evidence of peritonsillar abscess. She has bilateral anterior cervical chain adenopathy. Patient has been seen by anesthesia and critical care medicine who recommend overnight stay in the ICU to observe her airway. She has been given 1 dose of IV Unasyn and 10 mg dexamethasone. Repeat strep test is negative. [place] testing is negative. Viral panel is pending. Patient will be admitted to the ICU for further observation and treatment. Allergies Allergy/AdvReac Type Severity Reaction Status Date / Time No Known Allergies Allergy Verified 04/12/25 15:06 Home Medications Medication Instructions Recorded Confirmed Type amoxicillin 875 mg-potassium 1 tab PO BID 04/12/25 04/12/25 History clavulanate 125 mg tablet norethindrone acetate 1 mg-ethinyl 1 tab PO DAILY 04/12/25 04/12/25 History estradiol 20 mcg tablet (Aurovela) venlafaxine 150 mg 150 mg PO DAILY 04/12/25 04/12/25 History capsule,extended release 24 hr Past Med/Surg History Problem List (Updated 04/12/25 @ 21:12 by Nigel De La Rosa DO) Depression with anxiety Airway compromise Neck swelling Dysphagia Odynophagia Short of breath on exertion Pharyngitis (Acute) Sepsis (Acute) Medical History External hemorrhoid Urinary problem Surgical History [place] teeth extracted (~12/08/07) History of appendectomy (~05/02/08) Social History Smoking Status: Never smoker Second Hand Exposure: No; Do You Dip or Chew Tobacco: No; Hx Alcohol Use: Yes Alcohol type: beer Hx Substance Use: No Preferred Language: Mongolian Communication Ability: Effective Junior Technical Writer Required: No Beliefs That Will Affect Care: None marital status: Current Living Situation: Family current occupational status: employed Feels Safe at Home: Yes Assistive Devices: None Review of Systems Review of Systems: Constitutional-intermittent fever; no weight loss Eyes- no acute visual changes ENT- no sinus drainage; severe sore throat, lymph node swelling both sides of the neck Pulmonary- no cough, no wheezing, no shortness of breath but she says she has had some shortness of breath Cardiac- no chest pain, no palpitations, no orthopnea, no dependent edema GI- no nausea, no vomiting, no diarrhea, no melena, no hematochezia - no dysuria, no hematuria Musculoskeletal- no arthralgias, no myalgias Derm- no rashes, no new skin lesions, no changing skin lesions Hematologic- no unusual bruising, no unusual bleeding Lymphatics-cervical adenopathy Neuro- no headaches, no focal neurologic symptoms Physical Exam Physical Exam: General- adult female seen at bedside in the ED. Nursing is present Head- atraumatic Eyes- PERRL, EOMI, anicteric ENT-she has some pharyngeal erythema, no exudates noted There is no evidence of epiglottitis, Neck- supple, no JVD, she has anterior cervical lymphadenopathy usually, no thyromegaly; carotids +2/2, no bruits appreciated Lungs- clear to auscultation and percussion Heart- regular rhythm; no murmur, no gallop, no rub appreciated Abdomen- normal bowel sounds, soft, nontender, no masses or hepatosplenomegaly Extremities- no pretibial edema, no calf tenderness; peripheral pulses intact Neuro- alert, oriented x 3; PERRL, EOMI; no focal deficits Skin- warm & dry, no rash Results & Data Results & Data Vital Signs (Past 12 Hours) Vital Signs Temp Pulse Pulse Resp BP BP Pulse Ox 04/12/25 20:30 110/75 04/12/25 20:30 110/75 04/12/25 20:30 110/75 04/12/25 20:30 110/75 04/12/25 20:30 89 15 96 04/12/25 20:15 86 20 95 04/12/25 20:15 112/75 04/12/25 20:15 112/75 04/12/25 20:15 112/75 04/12/25 20:15 112/75 04/12/25 20:15 112/75 04/12/25 20:00 87 17 95 04/12/25 20:00 119/74 04/12/25 20:00 119/74 04/12/25 20:00 119/74 04/12/25 20:00 119/74 04/12/25 20:00 119/74 04/12/25 19:45 81 18 95 04/12/25 19:45 105/62 04/12/25 19:45 105/62 04/12/25 19:45 105/62 04/12/25 19:45 105/62 04/12/25 19:45 105/62 04/12/25 19:30 89 13 97 04/12/25 19:30 108/70 04/12/25 19:30 108/70 04/12/25 19:30 108/70 04/12/25 19:30 108/70 04/12/25 19:30 108/70 04/12/25 19:15 92 H 96 04/12/25 19:15 106/69 04/12/25 19:15 106/69 04/12/25 19:15 106/69 04/12/25 19:15 106/69 04/12/25 19:15 106/69 04/12/25 19:00 85 96 04/12/25 19:00 105/66 04/12/25 19:00 105/66 04/12/25 19:00 105/66 04/12/25 19:00 105/66 04/12/25 19:00 105/66 04/12/25 19:00 81 16 105/62 95 04/12/25 18:55 81 04/12/25 18:45 89 97 04/12/25 18:45 89 97/71 L 97 04/12/25 18:30 82 95/68 L 96 04/12/25 17:52 77 21 108/71 95 04/12/25 16:52 79 16 106/68 95 04/12/25 14:45 92 H 14 110/74 96 04/12/25 14:31 95 H 04/12/25 14:30 95 H 26 H 110/74 95 04/12/25 14:21 92 H 20 100/65 96 04/12/25 12:00 37.1 C 112 H 18 108/73 96 O2 Del Method 04/12/25 20:30 04/12/25 20:30 04/12/25 20:30 04/12/25 20:30 04/12/25 20:30 04/12/25 20:15 04/12/25 20:15 04/12/25 20:15 04/12/25 20:15 04/12/25 20:15 04/12/25 20:15 04/12/25 20:00 04/12/25 20:00 04/12/25 20:00 04/12/25 20:00 04/12/25 20:00 04/12/25 20:00 04/12/25 19:45 04/12/25 19:45 04/12/25 19:45 04/12/25 19:45 04/12/25 19:45 04/12/25 19:45 04/12/25 19:30 04/12/25 19:30 04/12/25 19:30 04/12/25 19:30 04/12/25 19:30 04/12/25 19:30 04/12/25 19:15 04/12/25 19:15 04/12/25 19:15 04/12/25 19:15 04/12/25 19:15 04/12/25 19:15 04/12/25 19:00 04/12/25 19:00 04/12/25 19:00 04/12/25 19:00 04/12/25 19:00 04/12/25 19:00 04/12/25 19:00 Room Air 04/12/25 18:55 04/12/25 18:45 04/12/25 18:45 04/12/25 18:30 04/12/25 17:52 Room Air 04/12/25 16:52 Room Air 04/12/25 14:45 Room Air 04/12/25 14:31 04/12/25 14:30 Room Air 04/12/25 14:21 Room Air 04/12/25 12:00 Room Air Diagnostic Findings Laboratory Results WBC 16.21 K/ul (4.8-10.8) H 04/12/25 Unknown RBC 4.49 M/uL (4.20-5.40) 04/12/25 Unknown Hgb 13.1 g/dL (12.0-16.0) 04/12/25 Unknown Hct 38.9 % (37.0-47.0) 04/12/25 Unknown MCV 86.6 fL (80.0-100.0) 04/12/25 Unknown MCH 29.2 pg (25.0-34.0) 04/12/25 Unknown MCHC 33.7 g/dL (32.0-36.0) 04/12/25 Unknown RDW Std Deviation 40.4 fL (36.4-46.3) 04/12/25 Unknown RDW Coeff of Pablo 12.8 % (11.5-14.5) 04/12/25 Unknown Plt Count 387 K/uL (130-400) 04/12/25 Unknown MPV 8.9 fL (9.4-12.4) L 04/12/25 Unknown Immature Gran % (Auto) 0.9 % 04/12/25 Unknown Neut % (Auto) 74.0 % 04/12/25 Unknown Lymph % (Auto) 18.9 % 04/12/25 Unknown [place] % (Auto) 5.9 % 04/12/25 Unknown Eos % (Auto) 0.1 % 04/12/25 Unknown Baso % (Auto) 0.2 % 04/12/25 Unknown Neut # (Auto) 11.98 K/uL (1.40-6.50) H 04/12/25 Unknown Lymph # (Auto) 3.07 K/uL (1.20-3.40) 04/12/25 Unknown [place] # (Auto) 0.96 K/uL (0.11-0.59) H 04/12/25 Unknown Eos # (Auto) 0.01 K/uL (0.00-0.50) 04/12/25 Unknown Baso # (Auto) 0.04 K/uL (0.00-0.20) 04/12/25 Unknown Immature Gran # (Auto) 0.15 K/uL (0.01-0.20) 04/12/25 Unknown Sodium 135 mmol/L (136-145) L 04/12/25 Unknown Potassium 3.9 mmol/L (3.5-5.1) 04/12/25 Unknown Chloride 101 mmol/L (98-107) 04/12/25 Unknown Carbon Dioxide 26 mmol/L (21-32) 04/12/25 Unknown Anion Gap 8 (3-11) 04/12/25 Unknown BUN 5 mg/dl (6-23) L 04/12/25 Unknown Creatinine 0.75 mg/dl (0.6-1.2) 04/12/25 Unknown Est Cr Clr Drug Dosing 94.4 ml/min 04/12/25 Unknown eGFR 106.41 04/12/25 Unknown BUN/Creatinine Ratio 6.7 (10-20) L 04/12/25 Unknown Glucose 97 mg/dl (70-99(Fasting)) 04/12/25 Unknown Calcium 9.0 mg/dl (8.6-10.3) 04/12/25 Unknown Total Bilirubin 0.4 mg/dl (0.2-1.0) 04/12/25 Unknown AST 16 U/L (13-39) 04/12/25 Unknown ALT 10 U/L (7-52) 04/12/25 Unknown Alkaline Phosphatase 55 U/L (34-104) 04/12/25 Unknown Total Protein 8.2 gm/dl (6.0-8.3) 04/12/25 Unknown Albumin 4.2 gm/dl (3.4-5.0) 04/12/25 Unknown Globulin 4.0 gm/dl (2.5-4.0) 04/12/25 Unknown Albumin/Globulin Ratio 1.1 (0.9-2) 04/12/25 Unknown Monoscreen Negative (Negative) 04/12/25 Unknown Group A Strep (PCR) NOT DETECTED (NotDetected) 04/12/25 Unknown Impressions Soft Tissue Neck CT 04/12/25 12:41 CT SCAN OF THE NECK WITH IV CONTRAST CLINICAL HISTORY: Persistent infection of the throat. Leukocytosis. COMPARISON STUDY: No priors TECHNIQUE: Following the IV administration of negative for cc of Optiray 320, CT scan of the soft tissues of the neck was performed from the skull base to the upper chest. Images are reviewed in the axial, sagittal, and coronal planes. IV contrast was administered without complication. A dose lowering technique was utilized adhering to the principles of ALARA. CT DOSE: 435.51 mGy.cm FINDINGS: Pharynx: The pharyngeal soft tissues appear thickened with mucosal hyperemia. This causes mild to moderate effacement of the pharyngeal airway. The tonsils are diminutive versus surgically absent. No peritonsillar fluid collection is seen. There is no evidence of mass lesion. The vocal cords are symmetric. The parapharyngeal fat is well maintained. The epiglottis is normal. The prevertebral/retropharyngeal soft tissues are within normal limits. Lymphadenopathy: There are numerous enlarged cervical chain lymph nodes bilaterally. A taya aggregate in the right cervical chain on image #193 measures 2.4 x 1.5 cm and a left cervical chain node on image #199 measures 1.9 x 1.7 cm. Thyroid: Normal in size and attenuation. Salivary glands: The parotid and submandibular glands are within normal limits. Brain parenchyma: The visualized brain parenchyma at the skull base is normal in appearance. Vascular structures: The carotid arteries and jugular veins are patent bilaterally. Skeletal structures: Imaged portions of the calvarium at the skull base are within normal limits. The cervical spine appears intact. Orbits: The bony orbits are intact. Orbital contents are normal as visualized. Sinuses and mastoids: The paranasal sinuses are clear. The mastoid air cells are well pneumatized. Lung apices: Visualized apical lung parenchyma is clear. IMPRESSION: 1. There is evidence of a nonspecific pharyngitis. 2. No peritonsillar abscess is seen. 3. There are numerous enlarged bilateral cervical chain lymph nodes. These are likely reactive. Mononucleosis is a differential consideration. 4. Edema causes [id number] effacement of the pharyngeal airway. ACT 112: Negative or not required by law. Electronically signed by: Marco A Johnson M.D. 04/12/2025 2:36 PM Chest X-Ray 04/12/25 15:38 Technique: A frontal view of the chest was obtained Comparison is made the prior examination dated 06/07/2022 Findings: There are no confluent pulmonary infiltrates. The heart size is within normal limits. No pleural effusion or pneumothorax is seen. There is mild left lung base atelectasis No fracture is noted. No foreign body is seen Impression: Mild left lung base atelectasis Electronically signed by Gerson Mcfarland 04-12-2025 4:27 PM Code Status & VTE Plan VTE Prophylaxis Plan VTE Prophylaxis will be ordered: No
[2025-04-12 21:25] LABS: Chlamydia pneumoniae PCR Not Detected (NotDetected); Coronavirus 229E PCR Not Detected (NotDetected); Coronavirus CoV-2 (COVID19)PCR Not Detected (NotDetected); Coronavirus HKU1 PCR Not Detected (NotDetected); Coronavirus NL63 PCR Not Detected (NotDetected); Coronavirus OC43PCR Not Detected (NotDetected); Human Metapneumovirus PCR Not Detected (NotDetected); Parainfluenza Virus 1 PCR Not Detected (NotDetected); Parainfluenza Virus 2 PCR Not Detected (NotDetected); Parainfluenza Virus 3 PCR Not Detected (NotDetected); Parainfluenza Virus 4 PCR Not Detected (NotDetected); Respiratory Syncytial VirusPCR Not Detected (NotDetected); Rhinovirus/Enterovirus PCR Not Detected (NotDetected)
[2025-04-12] MEDS: SODIUM CHLORIDE 0.9% 1,000 ML IV SCH (22:16)
[2025-04-13 04:47] LABS: Hematocrit (blood only) 35.5 % (37.0-47.0); Hemoglobin 11.8 g/dL (12.0-16.0); Mean Corpuscular Hemoglobin 28.9 pg (25.0-34.0); Mean Corpuscular Volume 87.0 fL (80.0-100.0); Platelet Count 373 K/uL (130-400); RDW Standard Deviation 40.1 fL (36.4-46.3); Red Blood Count 4.08 M/uL (4.20-5.40); White Blood Count 9.10 K/ul (4.8-10.8)
[2025-04-13 05:05] LABS: Anion Gap 11.0 (3-11); Blood Urea Nitrogen 11.0 mg/dl (6-23); Calcium 9.0 mg/dl (8.6-10.3); Carbon Dioxide 22.0 mmol/L (21-32); Chloride 105.0 mmol/L (98-107); Creatinine Clr Calc Pharmacy 123.0 ml/min; Glucose 125.0 mg/dl (70-99(Fasting)); Potassium 4.1 mmol/L (3.5-5.1); Sodium 138.0 mmol/L (136-145)
[2025-04-13] MEDS: ENOXAPARIN INJ 40 MG/0.4 ML SYR SQ SCH (08:32)
--- NOTE | 2025-04-13 09:04 | Critical Care Progress Note ---
Date of Service April 13, 2025 Assessment & Plan (1) Pharyngitis: (2) Short of breath on exertion: (3) Odynophagia: (4) Dysphagia: Plan -- Strep pharyngitis CT of the neck 04/12/2025 shows mild to moderate effacement of the pharyngeal airway with edema Mononucleosis screen negative Group A strep was negative on PCR on 04/12/2025 Patient got dexamethasone Continue with Unasyn Evaluated by ENT in the ED, no intervention from their end for the time being. -- Anxiety/depression Continue with venlafaxine -- Leukocytosis Likely secondary to infection Continue to trend The patient's swallowing/swelling improves will trial of clear liquids Admission and Anticipated Discharge Date Admission Date: April 12, 2025 Supervising Physician Co-Signing Physician Notes I saw and evaluated the patient with LEÓN Monroy, and agree with findings and plan as documented in the note. Patient seen and examined at bedside. No acute distress, no adverse events overnight She stated that she is feeling much better compared to when she came to the hospital Denies any shortness of breath No chest pain No nausea or vomiting Still complaining of some pain when she is swallowing but she was able to tolerate clear liquid as well as popsicle No drooling Constitutional: No acute distress HEENT: EOMI, PERRLA, no stridor, able to talk in full sentences Respiratory system: Good air entry bilaterally, no wheeze, no rhonchi, minimal crackles left lower lobe CVS: S1-S2 positive, no murmurs or gallops Abdomen: Soft, nontender, nondistended, positive bowel sounds x4 Extremities: +2 pulses bilaterally radialis/ dorsalis pedis, no cyanosis, no edema Neuro: Awake alert oriented x3 Psych: Normal mood and affect G/U: No Wilson --Prophylaxis VTE: Lovenox GI: None Lines: Peripheral Diet: Start clear liquids Plan: In/out: Positive 1400 mL, urine output not measured Continue with Dexamethasone tapered to 5 milligrams every 8 hours, tomorrow can go down to twice daily Magic mouthwash for odynophagia Start clear liquids and advance as tolerated Hemodynamically stable to be downgrade to medical floor Case discussed with primary team Please note the above document was generated using voice recognition software. It may contain grammatical, syntax or spelling errors.Any formal questions or concerns about the content, text or information contained within the body of this dictation should be directly addressed to the provider for clarification. Subjective Patient doing well this am. Denies shortness of breath. Still has difficulty swallowing but improved somewhat from yesterday. Patient tolerated ice chips and popsicle this am without issue. Patient remains on room air this am with no stridor noted. Dexamethasone weaned from q6h to q8h. ENT attending at bedside this am Dr. Llamas and no plans for intervention from their perspective. Review of Systems 2 Review of Systems: All systems reviewed & are unremarkable except as noted in HPI & below Physical Exam 2 Physical Exam: VITALS: Reviewed. WEIGHT/BMI reviewed. GEN: Pleasant, well-developed, NAD. PSYCH: Good Judgment. AOx3. Normal memory, mood, and affect. HEENT -Head: NC/AT; -Eyes: PERRL, EOMI. No discharge or redn ess; -Ears: External ears are normal. -Nose: Normal nares. NECK: Supple, tender CV: RRR, no m/r/g. LUNGS: CTAB, no w/r/c. No stridor noted in upper airway. Breathing nonlabored. Chest rise symmetrical. ABD: Soft, NT/ND, NBS, no masses or organomegaly. : Voiding SKIN: Warm, well perfused. No skin rashes or abnormal lesions. MSK: No deformities, Normal gait. EXT: No clubbing, cyanosis, or edema. NEURO: Normal muscle strength and tone. No focal deficits. Results & Data Results & Data Vital Signs (Past 12 Hours) Vital Signs Temp Pulse Pulse Resp BP BP Pulse Ox 04/13/25 08:00 36.6 C 04/13/25 06:00 103/72 04/13/25 06:00 103/72 04/13/25 06:00 103/72 04/13/25 06:00 103/72 04/13/25 06:00 10304/13/25 06:00 82 19 95 04/13/25 05:00 71 15 96 04/13/25 05:00 96/61 L 04/13/25 05:00 96/61 L 04/13/25 05:00 96/61 L 04/13/25 05:00 96/61 L 04/13/25 05:00 96/61 L 04/13/25 04:00 96/61 L 04/13/25 04:00 96/61 L 04/13/25 04:00 96/61 L 04/13/25 04:00 96/61 L 04/13/25 04:00 96/61 L 04/13/25 04:00 74 21 95 04/13/25 03:00 60 16 94 04/13/25 03:00 103/68 04/13/25 03:00 103/68 04/13/25 03:00 103/68 04/13/25 03:00 103/68 04/13/25 03:00 103/68 04/13/25 02:00 105/60 04/13/25 02:00 105/60 04/13/25 02:00 105/60 04/13/25 02:00 105/60 04/13/25 02:00 105/60 04/13/25 02:00 66 15 94 04/13/25 01:00 124/63 04/13/25 01:00 124/63 04/13/25 01:00 124/63 04/13/25 01:00 124/63 04/13/25 01:00 124/63 04/13/25 01:00 124/63 04/13/25 01:00 57 L 15 95 04/13/25 00:00 79 18 94 04/13/25 00:00 125/78 04/13/25 00:00 125/78 04/13/25 00:00 125/78 04/13/25 00:00 125/78 04/13/25 00:00 125/78 04/12/25 23:00 84 18 95 04/12/25 23:00 114/72 04/12/25 23:00 114/72 04/12/25 23:00 114/72 04/12/25 23:00 114/72 04/12/25 23:00 114/72 04/12/25 22:50 36.7 C 86 18 126/84 95 04/12/25 22:15 86 19 96 04/12/25 22:07 68 16 98/64 L 98 O2 Del Method 04/13/25 08:00 04/13/25 06:00 04/13/25 06:00 04/13/25 06:00 04/13/25 06:00 04/13/25 06:00 04/13/25 06:00 04/13/25 05:00 04/13/25 05:00 04/13/25 05:00 04/13/25 05:00 04/13/25 05:00 04/13/25 05:00 04/13/25 04:00 04/13/25 04:00 04/13/25 04:00 04/13/25 04:00 04/13/25 04:00 04/13/25 04:00 04/13/25 03:00 04/13/25 03:00 04/13/25 03:00 04/13/25 03:00 04/13/25 03:00 04/13/25 03:00 04/13/25 02:00 04/13/25 02:00 04/13/25 02:00 04/13/25 02:00 04/13/25 02:00 04/13/25 02:00 04/13/25 01:00 04/13/25 01:00 04/13/25 01:00 04/13/25 01:00 04/13/25 01:00 04/13/25 01:00 04/13/25 01:00 04/13/25 00:00 04/13/25 00:00 04/13/25 00:00 04/13/25 00:00 04/13/25 00:00 04/13/25 00:00 04/12/25 23:00 04/12/25 23:00 04/12/25 23:00 04/12/25 23:00 04/12/25 23:00 04/12/25 23:00 04/12/25 22:50 Room Air 04/12/25 22:15 04/12/25 22:07 Room Air Laboratory Results 04/13/25 04:25 04/13/25 04:25 Abnormal Lab Results 04/12/25 04/13/25 04/13/25 Unknown 04:25 Unknown WBC 16.21 H 9.10 RBC 4.49 4.08 L Hgb 13.1 11.8 L Hct 38.9 35.5 L MCV 86.6 87.0 MCH 29.2 28.9 MCHC 33.7 33.2 RDW Std Deviation 40.4 40.1 RDW Coeff of Pablo 12.8 12.7 Plt Count 387 373 MPV 8.9 L 9.1 L Immature Gran % (Auto) 0.9 Neut % (Auto) 74.0 Lymph % (Auto) 18.9 [place] % (Auto) 5.9 Eos % (Auto) 0.1 Baso % (Auto) 0.2 Neut # (Auto) 11.98 H Lymph # (Auto) 3.07 [place] # (Auto) 0.96 H Eos # (Auto) 0.01 Baso # (Auto) 0.04 Immature Gran # (Auto) 0.15 Sodium 135 L 138 Potassium 3.9 4.1 Chloride 101 105 Carbon Dioxide 26 22 Anion Gap 8 11 BUN 5 L 11 Creatinine 0.75 0.57 L Est Cr Clr Drug Dosing 94.4 123.0 eGFR 106.41 121.46 BUN/Creatinine Ratio 6.7 L 19.3 Glucose 97 125 H Calcium 9.0 9.0 Total Bilirubin 0.4 AST 16 ALT 10 Alkaline Phosphatase 55 Total Protein 8.2 Albumin 4.2 Globulin 4.0 Albumin/Globulin Ratio 1.1 Nasal Screen MRSA (PCR) Negative Adenovirus (PCR) Not Detected B. pertussis DNA (PCR) Not Detected B.parapertussis DNA PCR Not Detected C. pneumoniae DNA (PCR) Not Detected Coronavirus OC43 (PCR) Not Detected Coronavirus HKU1 (PCR) Not Detected Coronavirus 229E (PCR) Not Detected SARS-CoV-2 (PCR) Not Detected Coronavirus NL63 (PCR) Not Detected Monoscreen Negative Human Metapneumovir PCR Not Detected Influenza Type A (PCR) Not Detected Influenza Type B (PCR) Not Detected M. pneumoniae (PCR) Not Detected Parainfluenza 1 (PCR) Not Detected Parainfluenza 2 (PCR) Not Detected Parainfluenza 3 (PCR) Not Detected Parainfluenza 4 (PCR) Not Detected RSV (PCR) Not Detected Entero/Rhino (PCR) Not Detected Group A Strep (PCR) NOT DETECTED Diagnostic Findings Soft Tissue Neck CT 04/12/25 12:41 CT SCAN OF THE NECK WITH IV CONTRAST CLINICAL HISTORY: Persistent infection of the throat. Leukocytosis. COMPARISON STUDY: No priors TECHNIQUE: Following the IV administration of negative for cc of Optiray 320, CT scan of the soft tissues of the neck was performed from the skull base to the upper chest. Images are reviewed in the axial, sagittal, and coronal planes. IV contrast was administered without complication. A dose lowering technique was utilized adhering to the principles of ALARA. CT DOSE: 435.51 mGy.cm FINDINGS: Pharynx: The pharyngeal soft tissues appear thickened with mucosal hyperemia. This causes mild to moderate effacement of the pharyngeal airway. The tonsils are diminutive versus surgically absent. No peritonsillar fluid collection is seen. There is no evidence of mass lesion. The vocal cords are symmetric. The parapharyngeal fat is well maintained. The epiglottis is normal. The prevertebral/retropharyngeal soft tissues are within normal limits. Lymphadenopathy: There are numerous enlarged cervical chain lymph nodes bilaterally. A taya aggregate in the right cervical chain on image #193 measures 2.4 x 1.5 cm and a left cervical chain node on image #199 measures 1.9 x 1.7 cm. Thyroid: Normal in size and attenuation. Salivary glands: The parotid and submandibular glands are within normal limits. Brain parenchyma: The visualized brain parenchyma at the skull base is normal in appearance. Vascular structures: The carotid arteries and jugular veins are patent bilaterally. Skeletal structures: Imaged portions of the calvarium at the skull base are within normal limits. The cervical spine appears intact. Orbits: The bony orbits are intact. Orbital contents are normal as visualized. Sinuses and mastoids: The paranasal sinuses are clear. The mastoid air cells are well pneumatized. Lung apices: Visualized apical lung parenchyma is clear. IMPRESSION: 1. There is evidence of a nonspecific pharyngitis. 2. No peritonsillar abscess is seen. 3. There are numerous enlarged bilateral cervical chain lymph nodes. These are likely reactive. Mononucleosis is a differential consideration. 4. Edema causes [id number] effacement of the pharyngeal airway. ACT 112: Negative or not required by law. Electronically signed by: Marco A Johnson M.D. 04/12/2025 2:36 PM Chest X-Ray 04/12/25 15:38 Technique: A frontal view of the chest was obtained Comparison is made the prior examination dated 06/07/2022 Findings: There are no confluent pulmonary infiltrates. The heart size is within normal limits. No pleural effusion or pneumothorax is seen. There is mild left lung base atelectasis No fracture is noted. No foreign body is seen Impression: Mild left lung base atelectasis Electronically signed by Gerson Mcfarland 04-12-2025 4:27 PM Coding Level of Care Code 24618 SUB INP/OBS CARE 235MIN Diagnoses Pharyngitis J02.9 Short of breath on exertion R06.02 Odynophagia R13.10 Dysphagia R13.10
[2025-04-13] MEDS ORDERED: FIRST - Mouthwash BLM 5 ML UDP PO PRN (10:15)
--- NOTE | 2025-04-13 10:24 | Hospitalist Progress Note ---
Date of Service April 13, 2025 Assessment & Plan (1) Airway compromise: Plan: On admission - Patient evaluated by ENT, anesthesia and critical care medicine. No urgent need for intubation but close observation in the ICU is warranted Pt improved now and will be downgraded to PCU. IV Dexamethasone now to q8hrs, from q6hrs Cont. unasyn Close observation of airway started clear liquids (2) Neck swelling: Plan: Neck swelling and adenopathy due to recent pharyngitis Continue steroids as above (3) Dysphagia: (4) Pharyngitis: Plan: cont. IV Unasyn as above Continuity IV steroids as above Elevated white count secondary to an infection and pharyngitis. Will trend labs (5) Depression with anxiety: Plan: Restart Effexor when able to take p.o. safely Plan Patient is a full code VTE prophylaxis: Lovenox Restart OCPs when able to take p.o. Admission and Anticipated Discharge Date Admission Date: April 12, 2025 Subjective Pt seen in follow up Sitting up in bed in [facility], says he feels better than yesterday Denies shortness of breath. Still has difficulty swallowing but improved somewhat from yesterday. Says she had ice chips and popsicle. On RA Pt in ICU, to be downgraded to PCU. Per report pt seen by ENT, Dr. Llamas, per his recommendations - Dexamethasone weaned from q6h to q8h. Cont. Unasyn. Review of Systems Review of Systems: All systems reviewed & are unremarkable except as noted in Subjective Physical Exam Physical Exam: General- WD/WN F in [facility] Head- atraumatic Eyes- PERRL, EOMI, anicteric ENT-she has some pharyngeal erythema, no exudates noted Neck- supple, + anterior cervical lymphadenopathy Lungs- clear to auscultation, no wheezing Heart- regular rhythm; no murmur Abdomen- normal bowel sounds, soft, nontender Extremities- no pretibial edema, no calf tenderness; peripheral pulses intact Neuro- alert, oriented x 3; PERRL, EOMI; no focal deficits Skin- warm & dry, no rash Results & Data Results & Data Vital Signs (Past 12 Hours) Vital Signs Temp Pulse Pulse Resp BP BP Pulse Ox 04/13/25 08:00 36.6 C 04/13/25 06:00 103/72 04/13/25 06:00 103/72 04/13/25 06:00 103/72 04/13/25 06:00 103/72 04/13/25 06:00 103/72 04/13/25 06:00 82 19 95 04/13/25 05:00 71 15 96 04/13/25 05:00 96/61 L 04/13/25 05:00 96/61 L 04/13/25 05:00 96/61 L 04/13/25 05:00 96/61 L 04/13/25 05:00 96/61 L 04/13/25 04:00 96/61 L 04/13/25 04:00 96/61 L 04/13/25 04:00 96/61 L 04/13/25 04:00 96/61 L 04/13/25 04:00 96/61 L 04/13/25 04:00 74 21 95 04/13/25 03:00 60 16 94 04/13/25 03:00 103/68 04/13/25 03:00 103/68 04/13/25 03:00 103/68 04/13/25 03:00 103/68 04/13/25 03:00 103/68 04/13/25 02:00 105/60 04/13/25 02:00 105/60 04/13/25 02:00 105/60 04/13/25 02:00 105/60 04/13/25 02:00 105/60 04/13/25 02:00 66 15 94 04/13/25 01:00 124/63 04/13/25 01:00 124/63 04/13/25 01:00 124/63 04/13/25 01:00 124/63 04/13/25 01:00 124/63 04/13/25 01:00 124/63 04/13/25 01:00 57 L 15 95 04/13/25 00:00 79 18 94 04/13/25 00:00 125/78 04/13/25 00:00 125/78 04/13/25 00:00 125/78 04/13/25 00:00 125/78 04/13/25 00:00 125/78 04/12/25 23:00 84 18 95 04/12/25 23:00 114/72 04/12/25 23:00 114/72 04/12/25 23:00 114/72 04/12/25 23:00 114/72 04/12/25 23:00 114/72 04/12/25 22:50 36.7 C 86 18 126/84 95 O2 Del Method 04/13/25 08:00 04/13/25 06:00 04/13/25 06:00 04/13/25 06:00 04/13/25 06:00 04/13/25 06:00 04/13/25 06:00 04/13/25 05:00 04/13/25 05:00 04/13/25 05:00 04/13/25 05:00 04/13/25 05:00 04/13/25 05:00 04/13/25 04:00 04/13/25 04:00 04/13/25 04:00 04/13/25 04:00 04/13/25 04:00 04/13/25 04:00 04/13/25 03:00 04/13/25 03:00 04/13/25 03:00 04/13/25 03:00 04/13/25 03:00 04/13/25 03:00 04/13/25 02:00 04/13/25 02:00 04/13/25 02:00 04/13/25 02:00 04/13/25 02:00 04/13/25 02:00 04/13/25 01:00 04/13/25 01:00 04/13/25 01:00 04/13/25 01:00 04/13/25 01:00 04/13/25 01:00 04/13/25 01:00 04/13/25 00:00 04/13/25 00:00 04/13/25 00:00 04/13/25 00:00 04/13/25 00:00 04/13/25 00:00 04/12/25 23:00 04/12/25 23:00 04/12/25 23:00 04/12/25 23:00 04/12/25 23:00 04/12/25 23:00 04/12/25 22:50 Room Air Laboratory Results 04/13/25 04/13/25 04/12/25 Range/Units Unknown 04:25 Unknown WBC 9.10 16.21 H (4.8-10.8) K/ul RBC 4.08 L 4.49 (4.20-5.40) M/uL Hgb 11.8 L 13.1 (12.0-16.0) g/dL Hct 35.5 L 38.9 (37.0-47.0) % MCV 87.0 86.6 (80.0-100.0) fL MCH 28.9 29.2 (25.0-34.0) pg MCHC 33.2 33.7 (32.0-36.0) g/dL RDW Std Deviation 40.1 40.4 (36.4-46.3) fL RDW Coeff of Pablo 12.7 12.8 (11.5-14.5) % Plt Count 373 387 (130-400) K/uL MPV 9.1 L 8.9 L (9.4-12.4) fL Immature Gran % (Auto) 0.9 % Neut % (Auto) 74.0 % Lymph % (Auto) 18.9 % [place] % (Auto) 5.9 % Eos % (Auto) 0.1 % Baso % (Auto) 0.2 % Neut # (Auto) 11.98 H (1.40-6.50) K/uL Lymph # (Auto) 3.07 (1.20-3.40) K/uL [place] # (Auto) 0.96 H (0.11-0.59) K/uL Eos # (Auto) 0.01 (0.00-0.50) K/uL Baso # (Auto) 0.04 (0.00-0.20) K/uL Immature Gran # (Auto) 0.15 (0.01-0.20) K/uL Sodium 138 135 L (136-145) mmol/L Potassium 4.1 3.9 (3.5-5.1) mmol/L Chloride 105 101 (98-107) mmol/L Carbon Dioxide 22 26 (21-32) mmol/L Anion Gap 11 8 (3-11) BUN 11 5 L (6-23) mg/dl Creatinine 0.57 L 0.75 (0.6-1.2) mg/dl Est Cr Clr Drug Dosing 123.0 94.4 ml/min eGFR 121.46 106.41 BUN/Creatinine Ratio 19.3 6.7 L (10-20) Glucose 125 H 97 (70-99(Fasting)) mg/dl Calcium 9.0 9.0 (8.6-10.3) mg/dl Total Bilirubin 0.4 (0.2-1.0) mg/dl AST 16 (13-39) U/L ALT 10 (7-52) U/L Alkaline Phosphatase 55 (34-104) U/L Total Protein 8.2 (6.0-8.3) gm/dl Albumin 4.2 (3.4-5.0) gm/dl Globulin 4.0 (2.5-4.0) gm/dl Albumin/Globulin Ratio 1.1 (0.9-2) Nasal Screen MRSA (PCR) Negative (Negative) Adenovirus (PCR) Not Detected (NotDetected) B. pertussis DNA (PCR) Not Detected (NotDetected) B.parapertussis DNA PCR Not Detected (NotDetected) C. pneumoniae DNA (PCR) Not Detected (NotDetected) Coronavirus OC43 (PCR) Not Detected (NotDetected) Coronavirus HKU1 (PCR) Not Detected (NotDetected) Coronavirus 229E (PCR) Not Detected (NotDetected) SARS-CoV-2 (PCR) Not Detected (NotDetected) Coronavirus NL63 (PCR) Not Detected (NotDetected) Monoscreen Negative (Negative) Human Metapneumovir PCR Not Detected (NotDetected) Influenza Type A (PCR) Not Detected (NotDetected) Influenza Type B (PCR) Not Detected (NotDetected) M. pneumoniae (PCR) Not Detected (NotDetected) Parainfluenza 1 (PCR) Not Detected (NotDetected) Parainfluenza 2 (PCR) Not Detected (NotDetected) Parainfluenza 3 (PCR) Not Detected (NotDetected) Parainfluenza 4 (PCR) Not Detected (NotDetected) RSV (PCR) Not Detected (NotDetected) Entero/Rhino (PCR) Not Detected (NotDetected) Group A Strep (PCR) NOT DETECTED (NotDetected) Medications Administered Current Inpatient Medications Enoxaparin Sodium (Enoxaparin Inj 40 Mg/0.4 Ml Syr) 40 mg SQ QAM APARNA Stop: 05/13/25 08:59 Last Admin: 04/13/25 08:32 Dose: 40 mg Ampicillin Sodium/Sulbactam Sodium (Unasyn) 1,500 mg in 100 mls @ 200 mls/hr IV Q6H [facility] Stop: 04/17/25 18:59 Last Infusion: 04/13/25 06:27 Dose: Infused Sodium Chloride (Nss) 1,000 mls @ 100 mls/hr IV .Q10H [facility] Stop: 04/15/25 22:08 Last Admin: 04/13/25 08:32 Dose: 100 mls/hr Dexamethasone 5 mg/ Syringe 1.25 mls @ 1 mls/min IV Q8 APARNA Stop: 04/13/25 22:02 Dexamethasone 5 mg/ Syringe 1.25 mls @ 1 mls/min IV Q12H [facility] Stop: 04/14/25 18:02 Morphine Sulfate (Morphine Sulfate 2 Mg/Ml Carp) 2 mg IV Q4 PRN PRN Reason: Pain Stop: 04/26/25 22:08 Multi-Ingredient Mouthwash/Gargle (First - Mouthwash Blm 5 Ml Udp) 5 ml PO Q4H PRN PRN Reason: Sore Throat Stop: 05/13/25 10:14 Ondansetron HCl (Ondansetron Inj 2 Mg/Ml 2 Ml Vial) 4 mg IV Q6H PRN PRN Reason: Nausea Stop: 05/12/25 22:08
[2025-04-13] MEDS: dexAMETHasone 5 MG in SYRINGE 0 ML IV SCH (13:03)
[2025-04-13] MEDS: MoRPHine SULFATE 2 MG/ML CARP IV PRN (22:08)
[2025-04-13] MEDS: ONDANSETRON INJ 2 MG/ML 2 ML VIAL IV PRN (22:08)
[2025-04-14 05:01] LABS: Hematocrit (blood only) 35.2 % (37.0-47.0); Hemoglobin 11.8 g/dL (12.0-16.0); Mean Corpuscular Hemoglobin 29.0 pg (25.0-34.0); Mean Corpuscular Volume 86.5 fL (80.0-100.0); Platelet Count 402 K/uL (130-400); RDW Standard Deviation 40.3 fL (36.4-46.3); Red Blood Count 4.07 M/uL (4.20-5.40); White Blood Count 13.98 K/ul (4.8-10.8)
[2025-04-14 05:16] LABS: Anion Gap 7.0 (3-11); Blood Urea Nitrogen 13.0 mg/dl (6-23); Calcium 8.6 mg/dl (8.6-10.3); Carbon Dioxide 23.0 mmol/L (21-32); Chloride 109.0 mmol/L (98-107); Creatinine Clr Calc Pharmacy 114.9 ml/min; Glucose 112.0 mg/dl (70-99(Fasting)); Magnesium 2.4 mg/dl (1.7-2.4); Potassium 4.4 mmol/L (3.5-5.1); Sodium 139.0 mmol/L (136-145)
[2025-04-14] MEDS: dexAMETHasone 5 MG in SYRINGE 0 ML IV SCH (06:59)
[2025-04-14 09:23] VITALS: RESP 18; TEMP 98.2; O2SAT 93
--- NOTE | 2025-04-14 12:12 | Discharge Summary ---
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 She has 2 twin 6-year-old daughters who are not ill. She was diagnosed with strep throat on 04/04/2025. She was started on amoxicillin and then this was changed to Augmentin which she is currently on. Despite this the sore throat has not improved and she feels like the swelling around her neck has gotten worse. She has bilateral neck pain and feels as though her glands are swollen. She states her ears hurt as a child but has limited. She is tolerating fluids and some food. She is taking ibuprofen intermittently for pain. She does have a history of prior tonsillectomy in the past. Denies any headache, neck stiffness, chest pain, shortness of breath, difficulty controlling secretions. Workup in the ED reveals an elevated white count to 16,000. CT scan of the neck shows mild to moderate effacement of the pharyngeal airway. There is no evidence of pe ritonsillar abscess. She has bilateral anterior cervical chain adenopathy. Patient has been seen by anesthesia and critical care medicine who recommend overnight stay in the ICU to observe her airway. She has been given 1 dose of IV Unasyn and 10 mg dexamethasone. Repeat strep test is negative. [place] testing is negative. Viral panel is pending. Patient will be admitted to the ICU for further observation and treatment. Admission Exam Per Admitting Provider General- adult female seen at bedside in the ED. Nursing is present Head- atraumatic Eyes- PERRL, EOMI, anicteric ENT-she has some pharyngeal erythema, no exudates noted There is no evidence of epiglottitis, Neck- supple, no JVD, she has anterior cervical lymphadenopathy usually, no thyromegaly; carotids +2/2, no bruits appreciated Lungs- clear to auscultation and percussion Heart- regular rhythm; no murmur, no gallop, no rub appreciated Abdomen- normal bowel sounds, soft, nontender, no masses or hepatosplenomegaly Extremities- no pretibial edema, no calf tenderness; peripheral pulses intact Neuro- alert, oriented x 3; PERRL, EOMI; no focal deficits Skin- warm & dry, no rash Principal Diagnosis Strep pharyngitis Discharge Exam General- WD/WN F in NAD Head- atraumatic Eyes- PERRL, EOMI, anicteric ENT-she has some pharyngeal erythema, no exudates noted Neck- supple Lungs- clear to auscultation, no wheezing Heart- regular rhythm; no murmur Abdomen- normal bowel sounds, soft, nontender Extremities- no pretibial edema, no calf tenderness; peripheral pulses intact Neuro- alert, oriented x 3; PERRL, EOMI; no focal deficits Skin- warm & dry, no rash Discharge Data Allergies Allergy/AdvReac Type Severity Reaction Status Date / Time No Known Allergies Allergy Verified 04/12/25 15:06 Consultations 04/12/25 15:11 ED Decision to Admit Stat 04/12/25 20:21 ED Decision to Admit Stat 04/12/25 22:09 Consult Balance Weigher Routine Ordered Studies 04/12/25 12:41 CT neck soft tissues [CT soft tissue neck w con] Stat FINDINGS: Pharynx: The pharyngeal soft tissues appear thickened with mucosal hyperemia. This causes mild to moderate effacement of the pharyngeal airway. The tonsils are diminutive versus surgically absent. No peritonsillar fluid collection is seen. There is no evidence of mass lesion. The vocal cords are symmetric. The parapharyngeal fat is well maintained. The epiglottis is normal. The prevertebral/retropharyngeal soft tissues are within normal limits. Lymphadenopathy: There are numerous enlarged cervical chain lymph nodes bilaterally. A taya aggregate in the right cervical chain on image #193 measures 2.4 x 1.5 cm and a left cervical chain node on image #199 measures 1.9 x 1.7 cm. Thyroid: Normal in size and attenuation. Salivary glands: The parotid and submandibular glands are within normal limits. Brain parenchyma: The visualized brain parenchyma at the skull base is normal in appearance. Vascular structures: The carotid arteries and jugular veins are patent bilaterally. Skeletal structures: Imaged portions of the calvarium at the skull base are within normal limits. The cervical spine appears intact. Orbits: The bony orbits are intact. Orbital contents are normal as visualized. Sinuses and mastoids: The paranasal sinuses are clear. The mastoid air cells are well pneumatized. Lung apices: Visualized apical lung parenchyma is clear. IMPRESSION: 1. There is evidence of a nonspecific pharyngitis. 2. No peritonsillar abscess is seen. 3. There are numerous enlarged bilateral cervical chain lymph nodes. These are likely reactive. Mononucleosis is a differential consideration. 4. Edema causes [id number] effacement of the pharyngeal airway. Hospital Course (1) Airway compromise: On admission - Patient evaluated by ENT, anesthesia and critical care medicine. No urgent need for intubation but close observation in the ICU is warranted Pt improved and was downgraded to PCU yesterday. IV Dexamethasone was changed to q8hrs, from q6hrs yesterday. Discussed w/ ENT - can stop steroid now. Pt is feeling much better, she was able to eat mashed potatoes today. Cont. IV unasyn while inpt. Will DC on Clindamycin 150 QID for 10 days per ENT recommendation. Follow up w/ ENT Dr. Emir Llamas, and PCP. (2) Neck swelling: Neck swelling and adenopathy due to recent pharyngitis as above (3) Dysphagia: (4) Pharyngitis: cont. IV Unasyn while inpt, as above IV steroids as above, will stop on DC Elevated white count secondary to an infection and pharyngitis. WBC 16K on admission. WBC normalized to 9K on 04/13, now up at 13K however pt been on steroids here. (5) Depression with anxiety: Restart Effexor when able to take p.o. safely Restart OCPs when able to take p.o. Total Time Total Time Spent Total Time Spent (In Minutes): 40 Discharge Plan Discharge Items Patient Disposition: Home - Self-Care Reason For Visit: THROAT AND NECK SWELLING Discharge Diagnosis: Strep pharyngitis Condition on Discharge: Fair Activity: Per Instructions section Non-emergency contact: Primary Care Provider and Specialist Call non-emergency contact if: you have any medication questions and your symptoms worsen Follow-up/Referrals: Efrem Verma MD [Primary Care Provider] - 04/21/25 11:00 am ( 04/21/2025 11:00 AM Provider: Maddie Marshall CRNP [facility] ) Diet: Regular Diet Texture: Dental soft (bite-sized) Addtl Attending Provider Instructions: Follow up with primary care physician and ENT physician (Dr. Emir Llamas). The appointment was scheduled for you for 04/21/2025. You will be contacted by ENT's office about your follow up appointment. Finish antibiotic course as prescribed. Recommend taking probiotics while on antibiotics. Pending Studies at Discharge: No Stand-Alone Forms: My [facility], Smoking Cessation Medications and DC Order Prescriptions: New clindamycin HCl 150 mg capsule 150 mg PO QID 10 Days Qty: 40 0RF Continued norethindrone ac-eth estradiol [Aurovela 05/16 (21)] 1-20 mg-mcg tablet 1 tab PO DAILY venlafaxine 150 mg capsule,extended release 24hr 150 mg PO DAILY Discontinued amoxicillin-pot clavulanate 875-125 mg tablet 1 tab PO BID Rx Instructions: ORDERED 04/10/25 TAKE FOR 10 DAYS Discharge Orders: Discharge Order (Routine); Ordered 04/14/25 Ordered By: Juan Carlos Salgado Admission Data Admit Date/Time: 04/12/25 20:55 Attending Provider: Juan Carlos Salgado Admit Provider: Nigel De La Rosa Primary Care Provider: Efrem Verma Other Providers: Demario Stroud; Nigel De La Rosa; Ruben Major; Dilan Dupont; Jeremy Candelario; Brian Del Valle; Sulma Davis; Christian Butt; Rad Agosto; Joshua Caputo; Arlet Melendrez; Xin Sabillon; Mariola Sterling; Boo Ackerman; Tatyana Santos
[2025-04-14 13:32] VITALS: BP 126/84; PULSE 86
== END 2025-04-14 13:51 | disposition home or self-care (01) | DRG 153 ==
LOC: ED 11:52 → 1E 20:55